=== PATIENT | female | born 1940 | race Caucasian/White ===

== ENCOUNTER → 2016-10-28 | Outpatient (CLI) | payer OTHER, MEDICARE ==
[~2016-10-28] MED LIST: ACTOS 30 MG TAB30 MG PO; ACTOS 45 MG45 M1 PO; BACTRIM DS TAB1 EACH PO; CALCIUM 600 WI1 EAC5 PO; CIPRO500 MG PO; EVISTA PO; FORTICAL1 SPRAY NASAL; GLUCOPHAGE1000 MG PO; GLUCOSAMINE &1 EACH PO; HYDROCODONE-AP1 EAC6 PO; IBUPROFEN 200200 M1 PO; LISINOPRIL2.5 MG PO; LOVASTAT40 PO; MIACALCIN; NORCO 5-325 TA1 EACH PO; PROAIR HFA8.5 GM INH; VITAMIN D2000 UNI1 PO; VITAMIN E400 UNIT PO; VITAMINC500 PO
== END ==
LOC: MRI 10-09 08:08
DX: M48.56XA Collapsed vertebra, not elsewhere classified, lumbar region, initial encounter for fracture (principal); M51.36 Other intervertebral disc degeneration, lumbar region

== ENCOUNTER → 2017-09-16 | Outpatient (CLI) | payer OTHER, MEDICARE | LOC: NUC 08:52 | DX: M81.0 Age-related osteoporosis without current pathological fracture (principal); E28.39 Other primary ovarian failure; Z78.0 Asymptomatic menopausal state ==

== ENCOUNTER → 2017-12-24 | Outpatient (CLI) | payer OTHER, MEDICARE | LOC: RAD 12-23 09:50 | DX: Z12.31 Encounter for screening mammogram for malignant neoplasm of breast (principal) ==

== ENCOUNTER → 2018-09-30 | Outpatient (CLI) | payer OTHER, MEDICARE | LOC: ULTRA 09:27 | DX: M79.89 Other specified soft tissue disorders (principal); M79.605 Pain in left leg; R60.0 Localized edema ==

== ENCOUNTER → 2018-12-24 | Outpatient (CLI) | payer OTHER, MEDICARE | LOC: RAD 01:19 | DX: Z12.31 Encounter for screening mammogram for malignant neoplasm of breast (principal) ==

== ENCOUNTER 2019-05-27 07:29 | Inpatient (IN) | payer OTHER, MEDICARE ==
[~2019-05-27] VITALS: Ht 152.4 cm; Wt 77.5 kg
[2019-05-27 07:30] VITALS: BP 123/63
[2019-05-27] MEDS ORDERED: GLIPIZIDE 10 MG10 MG PO (07:43)
[2019-05-27] MEDS ORDERED: LASIX 40 MG TAB40 M2 PO (07:45)
[2019-05-27] MEDS ORDERED: LEVO-T50 MCG PO (07:46)
[2019-05-27] MEDS ORDERED: OZEMPIC0.25 MG/0. SUBQ (07:47)
[2019-05-27] MEDS ORDERED: ASPIR 8181 MG PO (07:47)
[2019-05-27] MEDS ORDERED: VITAMIN D1000 UNI1 PO (07:49)
[2019-05-27 14:53] LABS: HEMATOCRIT 35.1 % (37.0-47.0); HEMOGLOBIN 11.7 gm/dL (12.0-15.0); MCH 29.1 pg (26.0-34.0); MCHC 33.5 g/dL (28.0-37.0); MCV 87.1 fL (80.0-100.0); RBC 4.03 mil/uL (4.20-5.00); RDW 13.4 % (10.5-14.5); WBC 14.4 thou/uL (4.0-11.0)
[2019-05-27 14:54] LABS: URINE BILIRUBIN NEGATIVE (Negative); URINE BLOOD 1+ (Negative); URINE CLARITY CLOUDY; URINE COLOR YELLOW; URINE GLUCOSE-RANDOM* 1+ (Negative); URINE KETONES 1+ (Negative); URINE PROTEIN (DIPSTICK) TRACE (Negative); URINE SPECIFIC GRAVITY 1.015 (1.005-1.035); URINE UROBILINOGEN 0.2 E.U./dl (0.2-1.0)
[2019-05-27 14:57] LABS: URINE LEUKOCYTES-REFLEX 2+ (Negative); URINE NITRITE-REFLEX POSITIVE (Negative)
[2019-05-27 15:02] LABS: SQUAMOUS 0-3 Few /LPF (0-3); URINE WBC-REFLEX >25 Many /HPF (0-5)
[2019-05-27 15:03] LABS: CASTS None Seen /LPF (None Seen); CRYSTALS None Seen /LPF (None Seen); URINE RBC 3-10 Few /HPF (0-2)
[2019-05-27 15:03] LABS: CALCIUM 10.1 mg/dL (8.5-10.1); POTASSIUM 4.2 mmol/L (3.5-5.1)
[2019-05-27 15:09] LABS: ALBUMIN 3.1 g/dL (3.4-5.0); MAGNESIUM 1.9 mg/dL (1.8-2.4); TOTAL BILIRUBIN 0.7 mg/dL (<0.1-1.0); TOTAL PROTEIN 6.6 g/dL (6.4-8.2)
[2019-05-27 15:35] LABS: TSH 0.953 uIU/mL (0.358-3.740)
[2019-05-27 18:46] VITALS: BP 118/55
[2019-05-27 19:27] VITALS: BP 101/53
[2019-05-27 19:49] VITALS: BP 115/46
--- NOTE | 2019-05-28 02:50 | NUR ---
ASSUMED CARE OF PT AT 1945HRS. PT IS AOX4 AND LETS NEEDS BE KNOWN. PT WAS ORIENTED TO THE ROOM AND THE UNIT. PT UNDERSTANDS TEACHING AND WAS ABLE TO SIGN HER OWN CONSENTS. PAIN WAS REPORTED AND WAS TEATED WITH PRN PAIN MEDS. PT USED BEDPAN THIS SHIFT. WOUNDS PRESENT ON PT AND WAS PHOTOGRAPHED. PT WAS ABLE TO SLEEP PART OF THE SHIFT. NO S/S OF ACUTE DISTRESS. WILL CONTINUE TO MONITOR.
[2019-05-28 03:46] VITALS: BP 94/38
[2019-05-28 04:26] LABS: CALCIUM 9.8 mg/dL (8.5-10.1); MAGNESIUM 1.7 mg/dL (1.8-2.4); POTASSIUM 4.3 mmol/L (3.5-5.1)
[2019-05-28 04:42] LABS: ABSOLUTE NEUTROPHILS 6.8 thou/uL (1.4-8.2); BASOPHILS 0.4 % (0.0-2.0); EOSINOPHILS 1.2 % (0.0-3.0); HEMOGLOBIN 11.7 gm/dL (12.0-15.0); LYMPHOCYTES 23.8 % (24.0-44.0); MCH 29.7 pg (26.0-34.0); MCHC 33.5 g/dL (28.0-37.0); MCV 88.7 fL (80.0-100.0); MONOCYTES 8.2 % (1.0-8.0); PLATELET COUNT 242 thou/uL (150-400); POLYS 66.4 % (36.0-66.0); RBC 3.94 mil/uL (4.20-5.00); RDW 13.8 % (10.5-14.5); WBC 10.2 thou/uL (4.0-11.0)
[2019-05-28 08:00] VITALS: BP 107/46
--- NOTE | 2019-05-28 10:34 | NUR ---
WOUND CONSULT; THERE IS A STABLE FACE LACERATION TO THE LEFT CHEEK RE; A FALL. INTACT SUTURES. THE COCCYX AREA HAS AN OLD STAGE 3 WITH NO ACUTE S/S OF INFECTION. RECOMMENDATIONS; APPLY XEROFORM TO WOUND BED, COVER WITH A BOARDERED FOAM, DAILY/PRN DISCUSSED WITH RN
[2019-05-28] MEDS ORDERED: TRAMADOL 50 MG50 MG PO (12:41)
[2019-05-28] MEDS ORDERED: COLACE100 MG PO (12:43)
[2019-05-28] MEDS ORDERED: TRIPLE ANTIB28.35 GM TOP (12:43)
[2019-05-28] MEDS ORDERED: TYLENOL325 MG PO (12:43)
[2019-05-28] MEDS ORDERED: ENOXAPARIN40 MG/0.1 SUBQ (12:43)
[2019-05-28] MEDS ORDERED: MIRALAX17 GM PO (12:43)
[2019-05-28] MEDS ORDERED: CEFUROXIME500 MG PO (12:44)
--- NOTE | 2019-05-28 18:55 | NUR ---
ASSUMED PATIENT CARE AT 0715. PATIENT SLEEPING AT THAT TIME. DID AWAKEN FOR BREAKFAST. REFUSED AM INSULIN. METFORMIN AND GLIPIZIDE GIVEN AND NOON BLOOD SUGAR 129. PATIENT IS A MAX ASSIST FOR TURNING, PERICARE. WOUND CARE NURSE CHANGBED COCCYX WOUND. TOLERATING DIET WELL. MAIN COMPLAINT PAIN TO COCCYX, LT HIP AND LT KNEE. MEDICATED WITH TRAMADOL AND TYLENOL WITH MODERATE RELIEF. TURNED Q2H. FALL PRECAUTIONS IN PLACE. DISCHARGED TO 5N AT 1526 IN STABLE CONDITION.
== END 2019-05-28 15:26 | DRG 605 ==
LOC: ER 07:29 → EROBS 13:06 → 4W 13:06
PROVIDERS: Emergency Medicine; Nurse Practitioner; ADMIT Internal Medicine
PROC: 0HQ1XZZ Repair Face Skin, External Approach (ICD-10-PCS; principal; 2019-05-27)
DX: S01.81XA Laceration without foreign body of other part of head, initial encounter (principal); N39.0 Urinary tract infection, site not specified; E11.9 Type 2 diabetes mellitus without complications; I10 Essential (primary) hypertension; E78.00 Pure hypercholesterolemia, unspecified; J45.909 Unspecified asthma, uncomplicated; E78.5 Hyperlipidemia, unspecified; E03.9 Hypothyroidism, unspecified; Z60.2 Problems related to living alone; E66.9 Obesity, unspecified; M81.0 Age-related osteoporosis without current pathological fracture; M19.90 Unspecified osteoarthritis, unspecified site; Z88.1 Allergy status to other antibiotic agents; W07.XXXA Fall from chair, initial encounter; Y93.89 Activity, other specified; Y92.89 Other specified places as the place of occurrence of the external cause; Y99.8 Other external cause status; Z79.82 Long term (current) use of aspirin; Z79.899 Other long term (current) drug therapy; Z68.33 Body mass index [BMI] 33.0-33.9, adult; Z23 Encounter for immunization
CPT/HCPCS: 10040; 56526; 56527; 56528

== ENCOUNTER 2019-05-28 13:04 | Inpatient (IN) | payer OTHER, MEDICARE ==
[~2019-05-28] VITALS: Ht 152.4 cm; Wt 78.2 kg
[~2019-05-28 13:04] MED LIST changes: +ASPIR 8181 MG PO; +CEFUROXIME500 MG PO; +COLACE100 MG PO; +ENOXAPARIN40 MG/0.1 SUBQ; +GLIPIZIDE 10 MG10 MG PO; +LASIX 40 MG TAB40 M2 PO; +LEVO-T50 MCG PO; +MIRALAX17 GM PO; +OZEMPIC0.25 MG/0. SUBQ; +TRAMADOL 50 MG50 MG PO; +TRIPLE ANTIB28.35 GM TOP; +TYLENOL325 MG PO; +VITAMIN D1000 UNI1 PO
[2019-05-28 16:20] VITALS: BP 133/58
--- NOTE | 2019-05-28 16:34 | NUR ---
PT ARRIVED TO THE UNIT IN PAIN, AND EXTREMELY ANXIOUS. PHYSICAL THERAPY ATTEMPTED TO TRANSFER HER FROM THE WC TO THE BED USING VARIOUS TECHNIQUES, AND THE PT WAS NOT ABLE TO TOLERATE ANY OF THEM. MANAV DEPENDENT LIFT USED FOR TRANSFER, AND PT WAS ABLE TO FOLLOW DIRECTIONS. PHYSICAL ASSESSMENT DONE, AND VS CHECKED, THEN PT IMMEDIATELY TAKEN TO XRAY DUE TO PAIN IN HER LLE. AWAITING PT'S RETURN TO COMPLETE THE ADMISSION ASSESSMENT.
--- NOTE | 2019-05-28 16:45 | NUR ---
PT RETURNED FROM XRAY AND WAS ASSISTED TO BED. PHYSICAL ASSESSMENT IS FOLLOWS: BRUISING AND LACERATION TO LEFT CHEEK AND BELOW LEFT EYE, MEDICAL ART THERAPIST AND SCABBED OVER. PT WEARING GLASSES AND STATES THAT HER VISION IS "FINE." PT STILL C/O PAIN, BUT MUCH MORE CALM, STATING THAT SHE IS EASING DOWN. LUNGS ARE CTA BILAT WITH NO COUGH. HEART IS RRR S1S2, RADIAL PULSES AND PEDAL PULSES STRONG/NORMAL, MARKED EDEMA WITH REDNESS AND HARD-PITTING TO LLE WITH LEATHERY SKIN, AND DOPPLER IS NEGATIVE TODAY FOR DVT. PT NOTED THAT THIS HAS BEEN AN ONGOING PROBLEM. ABDOMEN IS VERY FIRM AND DISTENDED, AND BOWEL SOUNDS ARE HYPOACTIVE, PT NOTED NO BM SINCE 05/25 AND SHE DOESN'T RECALL PASSING GAS TODAY, BUT DID "YESTERDAY." BLE WEAKNESS IS PROFOUND AND PT WAS NOT ABLE TO BEAR FULL WEIGHT FOR TRANSFER TO BED EARLIER. WOUND AT COCCYX AREA IS SLIGHTLY TUNNELED AND PHOTOS AND MEASUREMENTS WERE TAKEN. REPORT GIVEN TO TAYLOR ALONZO, AND PT RESTING IN BED.
--- NOTE | 2019-05-28 17:52 | NUR ---
REC REPORT FROM COUNTER TOP MAKER ON NEW ADMISSION, SHE PERFORMED WOUND CARE, REMOVING DRESSING, CLEANING, MEASURING, PHOTOGRAPHING, AND REDRESSING (XEROFORM AND DRESSING), PT IS A&OX4, IS NOT AMBULATORY, USES W/C AND HAD FALL. ALSO HAS UTI, LIVES AT [facility]. IS NOT IMPULSIVE, HAS HAD A FEW BOUTS OF CRYING, UPSET WITH HAVING BEEN BROUGHT TO FLOOR, THEN LEFT FOR XRAY. ASSURED HER WE'D CARE FOR HER AND SHE'S IN HOSPITAL THEREFORE DIAGNOSTICS HAVE TO BE DONE AND WE'D ADM PAIN MEDICATION ONCE IT'S AVAILABLE. HAS MULTIPLE SKIN ISSUES, BRUISES, SCABS, CHIN STITCHES FROM FALL THAT OCCURRED YESTERDAY. HAS CALL LIGHT AND BEDSIDE TABLE CLOSE BY, ENCOURAGED PT TO USE CALL LIGHT FOR ANY NEEDS, TURN Q2H, IS VERY TIRED. HELPED HER CALL DIETARY TO GET HER SUPPLEMENT SHE DIDN'T GET IT AT LUNCH.
[2019-05-28 19:40] VITALS: BP 108/46
--- NOTE | 2019-05-29 00:51 | NUR ---
ASSESSMENT: PT REMAIN ALERT AND ORIENT TIMES THREE. C/O LEFT HIP AND KNEE PAIN THAT IS ACUTE IN NATURE. PRN PAIN MEDICAITONS GIVEN WITH PARTIAL RELIEF. PT REQUEST TO HAVE BOTH TYLENOL AND TRAMADOL GIVEN AT THE SAME TIME. IT WAS EXPLAINED TO PT THAT THIS WOULD NOT BE POSSIBLE AND THAT IT WAS NOT QUITE TIME FOR TRAMADOL TO BE GIVEN BUT THAT SHE COULD HAVE TYLENOL FOR NOW. TURNED EVERY TWO HOURS. BRUISING AND SCRATCHES NOTED ON FACE AND LEFT EXTREMITY. LOW AIR MATTRESS INITIATED FOR PT. PT INQUIRED ABOUT HER WEEKLY INJECTION OF OZEMPIC. IT WAS EXPLAINED THAT THIS MEDICATION WAS BEING HELD WHILE IN PATIENT STATUS. PT FEARED THAT HER BLOOD SUGARS WOULD GET OUT OF HAND AND WOULD BECOME HIGH IN RESULTS. PT IS CURRENTLY TAKING GLIPIZIDE QID. THIIS EVENINGS BLOOD SUGAR WAS 205. SACRAL WOUND COVERED WITH DRESSING AND PIC TAKEN. WOUND CARE NOTIFIED. 3 LITERS APPLIED PER RT R/T PT DESATS IN MID 80'S WHILE ASLEEPING. SLOW PROGRESS TOWARDS DC GOALS, WILL CONTINUE TO MONITOR.
[2019-05-29 05:16] LABS: HEMOGLOBIN 11.7 gm/dL (12.0-15.0); MCH 29.3 pg (26.0-34.0); MCHC 33.3 g/dL (28.0-37.0); MCV 87.9 fL (80.0-100.0); RBC 3.98 mil/uL (4.20-5.00); RDW 13.7 % (10.5-14.5); WBC 11.7 thou/uL (4.0-11.0)
[2019-05-29 05:19] LABS: CALCIUM 9.9 mg/dL (8.5-10.1); CREATININE 0.8 mg/dL (0.6-1.0); POTASSIUM 4.8 mmol/L (3.5-5.1)
[2019-05-29 07:20] VITALS: BP 99/53
--- NOTE | 2019-05-29 09:49 | NUR ---
ASSUMED CARE AT 0700. PATIENT IS ALERT AND ORIENTED X4. PATIENT TIRADO'S, THREADING MACHINE TENDER ARE EQUAL. LUNGS ARE CLEAR AND DEMINISHED. ABD IS SOFT WITH BSX4. ABD IS DISTENDED, BUT PATIENT STATES THAT HER ABD HAS BEEN THIS WAY. PATIENT HAD BM YESTERDAY REPORTED BY THE NIGHT NURSE. PATIENT HAS WOUND ON HER COCCYX AND TRIPLE ABT APPLIED WITH OPTIFOAM DRESSING. PATIENT HAS BILATERAL L.E. CELLULITIS. PATIENT IS ON PO ABT FOR UTI AND CELLULITIS. PATIENT HAS MULTIPLE BRUISES ON HER RIGHT ARM. ABASIONS ON HER FACE WITH SUTURES. PATIENT HAS LEFT FORARM S.L. PATIENT C/O LEFT HIP AND LEG PAIN. PATIENT XRAYS ARE NEGATIVE FOR FX. FALL AND SAFETY PROTOCOLS IN PLACE. DENIES PAIN AT THIS TIME. CONTINUES TO PROGRESS TOWARDS D/C GOALS. WILL CONTINUE TO MONITER.
[2019-05-29 20:00] VITALS: BP 119/45
--- NOTE | 2019-05-30 02:33 | NUR ---
ASSESSMENT: PT IS MORE RECEPTIVE OF HER POC THAN SHE DID YESTERDAY. TURNED EVERY TWO HOURS. NEOMYCIN APPLIED TO SCRAPES ON FACE AND SACRAL AREA. VSS, AFEBRILE. ENCOURAGED TO USE IS WHILE AWAKE. GAVE INSTRUCTIONS ON HOW TO USE THE IS, INCONT TO URINE TIMES 2. SLEPT MOST OF THE NIGHT, C/O GENERALIZED PAIN. PRN PAIN MEDS GIVEN WITH GOOD RESULTS. SLOW PROGRESS TOWARDS DC GOALS, WILL CONTINUE TO MONITOR.
[2019-05-30 08:00] VITALS: BP 128/67
--- NOTE | 2019-05-30 09:14 | NUR ---
ASSUMED CARE AT 0700. PATIENT IS ALERT AND ORIENTED X4. PATIENT TIRADO'S. PATIENT HAS CELLULITIS IN HER LOWER EXTREMITIES AND CONTINUES ON ABT PO. NO ADVERSE AFFECTS NOTED. LUNGS ARE CLEAR AND DEMINISHED. ABD IS SOFT, ROUND AND BSX4. PATIENT CONTINUES TO VOID PER BEDPAN AND HAS WOUND TO HER COCCYX. DRESSING WAS CHANGED. PATIENT CONTINUES TO WEAR HER 02 AT 2L OFF AND ON. PATIENT HAS IV IN HER LEFT FORARM. IV SITE WITHOUT REDNESS OR SWELLING. FALL AND SAFETY PROTOCOLS IN PLACE. C/O PAIN IN HER LEFT LEG AND HIP. X RAYS WERE NEG. MEDICATED WITH PRN PAIN MEDS. CONTINUES TO PROGRESS TOWARDS D/C GOALS. WILL CONTINUE TO MONITER.
[2019-05-30 19:58] VITALS: BP 136/58
--- NOTE | 2019-05-31 02:18 | NUR ---
ASSUMED CARES AT 1900. PT ALERT AND ORIENTED*4, RESTLESS AND ANXIOUS. C/O RIGHT QUADRANT ABDOMINAL PAIN 03/15. ABDOMEN IS FIRM, PROTRUDING AND BLOTTED, HYPOACTIVE BS. LAST REPORTED BM >5DAYS AGO PER PATIENT. MG CITRATE & DUCOLAX SUPP ADMINISTERED, PT HAD *2 XSM RUNNY STOOLS. KUB ORDERED, SHOWED LG STOOL IMPACTION AND NO OBSTRUCTION. CONTINUE TO HAVE A SACRAL WOUND, REPOSITIONED Q2H AND PRN. VOIDS AND STOOLS PER BEDPAN, PERICARE COMPLETED WITH QVOID/BM. Q1H VISUAL CHECKS. CALL LIGHT WITHIN REACH. FALL PRECAUTIONS IN PLACE
[2019-05-31 07:35] VITALS: BP 123/61
--- NOTE | 2019-05-31 12:23 | NUR ---
chart reviewed. pt up in beds, getting ready to eat lunch. intro to dcp, and team meeting. pt preferrs going by codi, " live in senior apartment alone, called [facility] [place] have transport chair, fww and cane. no home oxygen. manage own medication. call light in bedroom and bathroom. there needs to be one in living room. low income housing and why if have call light already show i have to pay monthly for life alert cause not one in living room. 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 had hh in past and been to [facility] rehab in past. daughter or take cab for transportation."/codi. will cont following as needed for dc needs.
--- NOTE | 2019-05-31 14:49 | NUR ---
Nutrition: pt admitted with fall, possible CHI. Has old stage 3 sacral wound per wound care and cellulitis LE. PO intake >50% of meals. No recent weight change. Ensure max ordered daily for additional protein. Will also trial alcon BID. Pt provided food preferences. BG 191-204. Hx DM, currently has heart healthy diet order. RD will add carb controlled-pt agrees. Would suggest D/C of heart healthy diet restriction per pt request. Low risk.
[2019-05-31 19:44] VITALS: BP 110/56
--- NOTE | 2019-05-31 20:18 | NUR ---
PATIENT ALERT AND ORIENTED AND SEVERAL LARGE BM TODAY AFTER PATIENT UP TO CHAIR AND MOBILE. PATIENT PAIN RELEIF BY REPOSITIONING AND STATES SITTING IN W/C IS MUCH MORE COMFORTABLE BECAUSE OF THE CUSHION. PATIENT LIKES THE SANTHOSH STEADY AND IF CONFIDENT WITH USING IT BUT REQUIRES QUES FOR POSTIIONING.
--- NOTE | 2019-06-01 03:08 | NUR ---
ASSUMED CARES AT 1900. PT AWAKE, ALERT AND ORIENTED*4. ANXIOUS AND TEARY REGARDING HER DISTENDED ABDOMEN AND BOWEL PROGRAM. PT REASSURED AND PT TEACHING COMPLETED AND PT VERBALISED UNDERSTANDING AND WAS CALM. ENEMA ADMINISTERED AND PT HAD A MODERATE BM. ABDOMEN REMAINS DISTENDED AND FIRM WITH HYPERACTIVE BS. PT C/O ABDOMINAL PAIN RIGHT UPPER AND LOWER QUADRANTS AND BACK PAIN, TYLENOL ADMINISTERED NEEDED AND PT REPOSITIONED Q2H. SACRAL WOUND REMAINS DRY AND INTACT, DRESSING CHANGED. UP WITH SIT TO STAND LIFT AND TOLERATED WELL. Q1H VISUAL CHECKS. CALL LIGHT WITHIN REACH. FALL PRECAUTIONS IN PLACE
[2019-06-01 10:21] VITALS: BP 121/62
--- NOTE | 2019-06-01 12:21 | NUR ---
team meeting, recommendation: re team , anticipation hh vs snf on . needs 24/ supervision and with assistance with bills and pills.
--- NOTE | 2019-06-01 22:01 | NUR ---
ASSUMED CARE OF PT AT 0715. PT IS A&OX4 AND VITAL SIGNS ARE STABLE. PT REPORTED PAIN IN LEFT HIP AND ABDOMEN WHICH WAS MANAGED WITH PO MEDICAITONS. PT ABDOMEN IS DISTENDED AND FIRM. PT REPORTS HAVING SUCCESSFUL BOWEL MOVEMENTS THIS SHIFT AND DURING THE NIGHT. REPORTS SOME NAUSEA W/O EMESIS. ACCU CHECKS ACHS AND MANAGED WITH INSULIN. PT INCONTINENT OF BOWEL AND BLADDER. SACRAL WOUND DRESSING NOT CHANGED BY THIS SHIFT REPORTED TO FOLLOWING NURSE, DUE TO PT BEING IN CHAIR AND REFUSING TO TRANSFER TO BED. PT PARTICIPATED IN SCHEDULED THERAPIES. FALL PRECAUTIONS IN PLACE AND NURSING WILL CONTINUE TO MOINTIOR.
[2019-06-02 04:07] LABS: GLYCOHEMOGLOBIN (HGB A1C) 6.6 % (4.8-5.6)
--- NOTE | 2019-06-02 05:36 | NUR ---
ASSESSMENT: PT REMIN ALERT AND ORIENT TIMES THREE. SLEPT MOST OF THE NIGHT WITH VSS AND AFEBRILE. DRESSING APPLIED TO BUTTOCKS. PRN PAIN MEDS GIVEN WITH GOOD RESULTS PER PT. AT TIMES PT IS WEEPING AND STATING THAT SHE WANTS TO GET TO THE POINT OF BEING ABLE TO CARE FOR HERSELF BECAUSE SHE DOES NOT WANT TO GO TO DEPENDENT FACILITY AT HER NH. SLOW PROGRESS TOWARDS DC GOALS. WILL CONTINUE TO MONITOR.
[2019-06-02 08:00] VITALS: BP 113/65
--- NOTE | 2019-06-02 10:52 | HC ---
[facility] [place] [address] CONSULTATION Name: WOLFGANG BLAIR Room #: 516-1 ADM IN M.R.#: [id number] Admission: 05/28/19 ������������������ Attend Phys: Rohan Amador MD Discharge: ������������������ Date of : 42 Report #: [id number] THIS REPORT FOR: //name// CC: Rohan Patel DATE OF SERVICE: 05/31/2019 WOUND CARE CONSULTATION PERSONAL PHYSICIAN: Jacky Patel M.D. . CHIEF COMPLAINT: Coccygeal ulcer. HISTORY OF PRESENT ILLNESS: This is a 79-year-old white female who was admitted to the acute rehab unit at [facility] and upon admission was found to have an ulceration in her coccygeal region. The patient recently had sustained a fall and subsequent complex facial laceration without fracture. The patient has a history of chronic balance problems and frequent falling. The patient has now been admitted to the rehab unit for rehabilitation and strengthening. We have been asked to follow the coccygeal ulcer while she is here. The patient denies any other associated wounds at this time. PAST MEDICAL HISTORY: Significant for type 2 diabetes, hypertension, asthma, osteoporosis, chronic balance and immobility problems. Hypercholesterolemia. CURRENT MEDICATIONS: Multiple, I reviewed the patient's medication list. DRUG ALLERGIES: AMOXICILLIN. SOCIAL HISTORY: The patient lives independently. Does not smoke or drink alcohol. FAMILY HISTORY: Not pertinent to current medical condition. REVIEW OF SYSTEMS: CONSTITUTIONAL: The patient denies fevers or chills. NEUROLOGIC: The patient has chronic generalized weakness, but no isolated weakness in arms or legs. EYES: No complaints. ENT: No complaints. CARDIAC: The patient has mild chronic lower extremity edema, but no chest pain or palpitation. RESPIRATORY: The patient denies shortness of breath, cough or wheezes. GASTROINTESTINAL: The patient denies nausea, vomiting, abdominal pain. GENITOURINARY: The patient denies urgency or frequency. [facility] [address] [place] [address] CONSULTATION Name: WOLFGANG BLAIR Room #: 516-1 ADM IN [facility]#: [id number] Admission: 05/28/19 ������������������ Attend Phys: Rohan Amador MD Discharge: ������������������ Date of : 42 Report #: [id number] MUSCULOSKELETAL: No complaints. SKIN: There is a chronic ulceration in the coccygeal region. PHYSICAL EXAMINATION: VITAL SIGNS: Temperature 36.6, pulse 88, respirations 20, BP 121/62. GENERAL: This is an alert and oriented x 3, pleasant white female who is in absolutely no distress. HEENT: Normocephalic, atraumatic. Mucous membranes are moist. Pupils are round. Sclerae white. NECK: Supple, nontender. LUNGS: Clear. HEART: Regular. ABDOMEN: Obese, soft, nontender. Evaluation of coccygeal region reveals a stage 3 decubitus ulcer, which is clean and granulating, minimal serous drainage noted without odor. Periwound is intact. There is no undermining or tunneling. No involvement of any deeper structures. EXTREMITIES: The patient has 1+ edema bilateral lower extremities. Bilateral heels are intact. NEUROLOGIC: Cranial nerves 2-12 grossly intact. Motor and sensory grossly intact. LABORATORY DATA: White count 11.7, hemoglobin 11.7, BUN 13, creatinine 0.8, glucose 241. Albumin 3.1. IMPRESSION: 1. Chronic coccygeal decubitus ulcer stage 3 without signs of infection. 2. Generalized debility. 3. Protein-calorie malnutrition, mild with albumin of 3.1. 4. Diabetes mellitus type 2. PLAN: We will start the patient on silver alginate and gauze to the area to aid in the healing. This will be changed once daily. We will make sure we maximize the patient's oral protein supplementation for healing. We will put the patient on low air loss mattress, have her turned every 2 hours. The patient will continue physical and occupational therapy for strengthening. We will maximize the patient's oral protein supplementation for healing. We will continue all other current medications and we will continue to follow the patient. ��������������������������������������������� <ELECTRONICALLY SIGNED> ���������������������������������������� By: Saulo Rodriguez MD ��������������������������������������������� 06/02/19 [id number] Saulo Rodriguez MD /nt
[2019-06-02 19:48] VITALS: BP 128/74
--- NOTE | 2019-06-02 20:18 | NUR ---
ASSUMED CARE OF PT AT 0715. PT IS A&OX4 AND VITAL SIGNS ARE STABLE. PT REPORTS CONTINUED ABDOMINAL DISCOMFORT AND DIFFICULTY WITH PASSING STOOL. STOOL SOFTNERS AND LAXATIVES GIVEN PER ORDER. ABDOMEN IS ROUND AND FIRM, BOWEL SOUNDS ACTIVE IN ALL QUADRANTS. PT REFUSED TO LIE DOWN FOR WOUND CARE. NIGHT NURSE MADE AWARE. ACCU CHECKS ACHS AND MANAGED WITH PO MEDICAITONS AND INSULIN. FALL PREACAUTIONS IN PLACE AND NURSING WILL CONTINUE TO MONITOR.
--- NOTE | 2019-06-03 04:06 | NUR ---
ASSUMED CARE AT APPROX 1900 EVENING 06/02. PT ALERT AND ORIENTED X4, APPROPRIATE AND COOPERATIVE, TALKATIVE, SOMEWHAT ANXIOUS. PT INCONTINENT WITH LOOSE BM AT BEGINNING OF SHIFT HAVING ACCIDENT IN CHAIR AND NEEDING MAX ASSISTANCE UP WITH SANTHOSH STEADY WALKER TO BATHROOM. ASSISTED WITH CLEANING UP AND CHANGING IN BATHROOM. PT ASSISTED INTO BED AND TURNED AND DRESSING APPLIED TO COCCYX AREA. PT ASSISTED WITH TURNING AND REPOSITIONING SEVERAL TIMES IN NIGHT. PT TOOK HS MEDS WITH WATER TOLERATING WELL. PT APPEARS TO BE SLEEPING AT PRESENT. BED ALARM ON AND CALL LIGHT IN REACH. WILL CONTINUE TO MONITOR.
[2019-06-03 07:59] VITALS: BP 124/48
[2019-06-03 19:42] VITALS: BP 124/66
--- NOTE | 2019-06-03 20:15 | NUR ---
ASSUMED CARE OF PT AT 0715. PT IS A&OX4 AND VITAL SIGNS ARE STABLE. PT WOUND TO SACRUM DRESSED AND PHOTOS TAKEN THIS AM. SEVERAL BOWEL MOVEMENTS REPORTED DURING THE NIGHT, PT CONTINUES TO HAVE ABDOMINAL DISTENSION AND DISCOMFORT. PO MEDICAITONS FOR BOWEL GIVEN, NO FURTHER RESULTS AT THIS TIME. ACCU CHECKS ACHS AND MANAGED WITH PO MEDICAITONS AND INSULIN. PT REPORTS CONCERN THAT SHE WILL BE REQUIRED TO TAKE INSULIN WHEN SHE RETURNS HOME DUE TO FEAR OF GIVING INJECTIONS. PT CONCERNS BROUGHT TO THE ATTENTION OF INGREDIENT SCALER HELPER. NURSING RECOMMENDS EXTENSIVE EDUCATION FOR PT IF INSULIN WILL BE NEEDED AFTER DISCHARGE, MAY REQUIRE ASSISTANCE WITH ALL INSULIN RELATED TASKS AT DISCHARGE. PAIN MANAGED WITH PO MEDICAITONS AND PT PARTICIPATED IN SCHEDULED THERAPIES. FALL PRECAUTIONS IN PLACE AND NURSING WILL CONTINUE TO MONITOR.
--- NOTE | 2019-06-04 04:12 | NUR ---
ASSESSMENT: PT QUITE NEEDY THIS EVENING. WAS SITTING UP IN THE CHAIR AT THE CHANGE OF SHIFT. PT DOES VERY WELL WITH TRANSFERRING WITH THE ROLLER CHAIR MACHINE TO THE BR AND BACK TO BED. SACRAL WOUND APPEARS TO BE SLOWLY HEALING. DC PLANS FOR THE 06/12/19. PT APPEARS HAPPIER THAN WHEN SHE FIRST ARRIVED AND IS DOING MORE THINGS FOR HERSELF AND HER CARE. TOLERATING PO INTAKE AND DENIES SOB, N/V. VSS, AFEBRILE. SLOW PROGRESS TOWARDS DC GOALS, WILL CONTINUE TO MONITOR.
[2019-06-04 06:22] LABS: ABSOLUTE NEUTROPHILS 5.4 thou/uL (1.4-8.2); BASOPHILS 0.4 % (0.0-2.0); EOSINOPHILS 3.9 % (0.0-3.0); HEMATOCRIT 32.8 % (37.0-47.0); HEMOGLOBIN 11.1 gm/dL (12.0-15.0); LYMPHOCYTES 29.3 % (24.0-44.0); MCH 29.2 pg (26.0-34.0); MCHC 33.7 g/dL (28.0-37.0); MCV 86.6 fL (80.0-100.0); MONOCYTES 11.8 % (1.0-8.0); PLATELET COUNT 354 thou/uL (150-400); POLYS 54.6 % (36.0-66.0); RBC 3.78 mil/uL (4.20-5.00); RDW 13.8 % (10.5-14.5); WBC 9.9 thou/uL (4.0-11.0)
[2019-06-04 07:30] VITALS: BP 115/56
[2019-06-04 08:54] LABS: CALCIUM 10.8 mg/dL (8.5-10.1); CREATININE 0.7 mg/dL (0.6-1.0); MAGNESIUM 2.1 mg/dL (1.8-2.4); POTASSIUM 4.4 mmol/L (3.5-5.1)
--- NOTE | 2019-06-04 13:27 | NUR ---
Nutrition: pt seen for early followup. Old stage 3 sacral wound, cellulitis LE. Likes the kike and the ensure max supplement but did not receive Kike at lunch. RD went and obtained for her. Intake 50-100% of meals. BG 130-188, Possible need for insulin at D/C noted. A1C 6.6. On metformin. Continue to suggest D/C of heart healthy diet restriction. Continue low risk.
--- NOTE | 2019-06-04 15:20 | NUR ---
cm visited with daughter jamaica gilliland this week team meeting and dcp. need for extra assistance with bills and pills, supervision. 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 have kids with actives as well. i would only be able to visit with her 1 x week. i know mom not going to want more therapy but she going to. thank you for call i will see mom this evening and call with 1 2 3 choices for skilled therapy"/everett lanza [phone].
--- NOTE | 2019-06-04 18:52 | NUR ---
PT ALERT AND ORIENTED TIMES FOUR. VSS, PT DENEIS PAIN/SOA. DRESSING TO COCCYX CHANGED THIS SHIFT. PT WORKED WELL WITH PT/OT. PT TOLERATES MEDS AND MEALS. PT PROGRESSING TOWRADS POC GOALS.
[2019-06-04 19:52] VITALS: BP 116/62
--- NOTE | 2019-06-05 05:11 | NUR ---
assumed care at approx 1900 evening 06/04. pt sitting up in w/c at change of shift. pt alert and oriented x4, appropriate and cooperative. pt somewhat frustrated and anxious and given much emotional support. pt assisted into bed at hs and took hs meds without difficulty. pt sleeping off and on and given Tylenol for c/o back pain. pt appears to be sleeping soundly at present. bed alarm on and call light in. will continue to monitor.
[2019-06-05 08:18] VITALS: BP 116/63
--- NOTE | 2019-06-05 18:13 | NUR ---
ASSUMED CARE OF PT AT 0715. PT IS A&OX4 AND VITAL SIGNS ARE STABLE. PT DENIES PAIN AND PARTICIPATED IN SCHEDULED THERAPIES. ACCU CHECKS BID AND MANAGED WITH INSULIN AND ORAL MEDICATIONS. DRESSING TO SACRUM CHANGED THIS SHIFT AND IS C/D/I, WOUND IS PINK AND MOIST. PT UP TO BATHROOM WITH 1 PERSON MIN ASSIST IN W/C USES GRAB BARS AND WALKER TO TRANSFER TO TOILET. PT CUED TO REPOSITION EVERY 2 HOURS. PT ACTIVELY PARTICIPATING IN CARES. FALL PRECAUTIONS IN PLACE AND NURSING WILL CONTINUE TO MONITOR.
[2019-06-05 19:30] VITALS: BP 106/53
--- NOTE | 2019-06-06 02:36 | NUR ---
PT ALERT AND ORIENTED X 4. TRANSFERS TO TOILET FROM W/C WITH ASSIST X 1. DRESSING TO SACRUM C/D/I. TYLENOL GIVEN AT HS PER PT REQUEST PREVENTATIVE FOR PAIN. DENIES PAIN OR DISCOMFORT. BED ALARM ON FOR SAFETY. PT APPEARS TO BE SLEEPING ON HOURLY ROUNDS.
[2019-06-06 08:06] VITALS: BP 119/53
--- NOTE | 2019-06-06 14:44 | NUR ---
ASSUMED CARE OF PT AT 0715. PT IS A&OX4 AND VITAL SIGNS ARE STABLE. ACCU CHECKS ACHS AND MANAGED WITH PO MEDICATIONS AND INSULIN. PT PERFORMED ADLS WITH SUPERVISION OR SET UP ASSISTANCE ONLY. TRANSFERS REQUIRE MOD ASSIST. DRESSING TO SACRUM CHANGED THIS AM, SITE IS MOIST WITH VISIBLE TUNNELING INTO THE WOUND BED, COVERED WITH SILVER FOAM DRESSING. PT ENCOURAGED TO REPOSITION EVERY [address] AND NURSIING WILL CONTINUE TO MONITOR.
[2019-06-06 19:57] VITALS: BP 110/51
--- NOTE | 2019-06-07 00:58 | NUR ---
PT ALERT AND ORIENTED X 4. TRANSFERS FROM W/C TO TOILET WITH ASSIST X 1. DRESSING C/D/I TO SACRUM. TYLENOL GIVEN AT HS PER PT REQUEST PREVENTATIVE FOR PAIN. DENIES PAIN OR DISCOMFORT. REFUSED MIRALAX AT HS. BED ALARM ON FOR SAFETY. PT APPEARS TO BE SLEEPING ON HOURLY ROUNDS.
[2019-06-07 07:30] VITALS: BP 119/57
--- NOTE | 2019-06-07 10:38 | NUR ---
ASSUMED CARES AT 0700. PT AWAKE, ALERT AND ORIENTED*4. VITALS REMAIN STABLE. DENIES PAIN. ABDOMEN REMAINS SOFT AND DISTENDED, PT REPORTS MULTIPLE STOOLS OVERNIGHT. SACRAL WOUND CLEANED AND DRESSING CHANGED. CONTINUES TO HAVE BLE EDEMA, EXTREMITIES ELEVATED AND TEDHOSE IN PLACE. PT UP WITH 1 MIN ASSIST, PIVOT TRANSFERS, GB AND WALKER AND TOLERATED WELL. Q1H VISUAL CHECKS. CALL LIGHT WITHIN REACH. FALL PRECAUTIONS IN PLACE
[2019-06-07 19:13] VITALS: BP 126/56
--- NOTE | 2019-06-08 02:10 | NUR ---
assumed care at approx 1900 evening 06/07. pt sitting up in w/c at change of shift wheeling herself around unit. pt alert and oriented x4, appropriate and cooperative. pt assisted with gown change and into bed at hs. pt given hs meds tolerating well. pt stated she had 3-4 bms in day but not diarrhea. pt also incontinent of urine tonight in bed and assisted with changing. pt refusing to lie on her side stating she cannot sleep on her side. advised pt it would be beneficial for her to help with healing of sacral wound. bed alarm on and call light in reach. will continue to monitor.
[2019-06-08 07:15] VITALS: BP 124/65
--- NOTE | 2019-06-08 13:29 | NUR ---
team meeting, recommendation: re team, 6th hh ( pt, ot, st, nursing and hh), daughter to assistance with 1 x week. education on checking bs at home.
[2019-06-08 19:15] VITALS: BP 103/45
--- NOTE | 2019-06-09 02:34 | NUR ---
assumed care at approx 1900 evening 06/08. pt sitting up in w/c wheeling herself around unit without difficulty. pt alert and oriented x4, appropriate and cooperative. pt assisted into bed at hs and pt took hs meds with water tolerating well. pt appears to be sleeping soundly with hourly rounding checks. bed alarm on and call light in reach. will continue to monitor.
[2019-06-09 07:50] VITALS: BP 112/64
--- NOTE | 2019-06-09 10:45 | NUR ---
ASSUMED CARE AT 0700. PATIENT IS ALERT AND ORIENTED X4. PATIENT TIRADO'S, HEALTH AND SAFETY COORDINATOR ARE EQUAL. LUNGS ARE CLEAR. ABD IS SOFT WITH BSX4. UP TO W/C , STAND, PIVOT , SIT. UP TO THE BATHROOM TO VOID EVER COLORED URINE. OPTIFOAM TO COCCYX AREA. FALL AND SAFETY PROTOCOLS IN PLACE. DENIES ANY PAIN AT THIS TIME. UP TO THE W/C WITH O.T. FALL AND SAFETY PROTOCOLS IN PLACE. DENIES ANY PAIN AT THIS TIME. CONTINUES TO PROGESS TOWARDS D/C GOALS. WILL CONTINUE TO MONITER.
[2019-06-09 19:43] VITALS: BP 111/65
--- NOTE | 2019-06-10 04:01 | NUR ---
ASSESSMENT: PT REMAIN ALERT AND ORIENT TIMES FOUR. PT WAS SITTING IN THE WC AT SHIFT CHANGE. OVER TIME AND WITH THERAPHY PT HAS PROGRESSED WELL. PT ABLE TO STAND, PIVOT, TURN AND SIT A LOT BETTER THAN WHEN SHE WAS ADMITTED. SEEMS HAPPIER AND TRY TO ELIMINATE MEDICATIONS WHICH CAUSES CONSTIPATION FROM HER REGIMEN. COCCYX WOUND HEALING SLOWLY. OPITFOAM INTACT. VSS, AFEBRILE. SLOW BUT STEADY PROGRESS TOWARDS DC GOALS, WILL CONTINUE TO MONITOR.
[2019-06-10 07:15] VITALS: BP 113/55
--- NOTE | 2019-06-10 09:37 | H ---
[facility] [place] [address] HISTORY AND PHYSICAL Name: WOLFGANG BLAIR Room #: 516-1 ADM IN M.R.#: [id number] Admission: 05/28/19 ������������������ Attend Phys: Rohan Amador MD Discharge: ������������������ Date of : 42 Report #: [id number] THIS REPORT FOR: //name// CC: Rohan Patel DATE OF SERVICE: 05/29/2019 HISTORY AND PHYSICAL/POST-ADMISSION PHYSICIAN EVALUATION HISTORY OF PRESENT ILLNESS: The patient is a 79-year-old female who was originally admitted on 05/27/2019 after a fall from her wheelchair level. The patient has had chronic balance problems and thus has utilized a wheelchair for stability. She fell from her wheelchair, hit her face and sustained a deep complex laceration requiring plastic surgery repair without any facial fractures. She did have a headache, although denied loss of consciousness. She thought that the fall may have been secondary to low blood sugar and anxiety. She also had knee pain and right great toe pain. She did have an x-ray, which did reveal a right large toe fracture. She was noted to have a fall with possible closed head injury gait instability/mobility and stability premorbidly wheelchair bound with balance issues and falling as well as being diagnosed with the urinary tract infection, diabetes mellitus type 2. The patient has now been admitted for acute in-hospital inpatient rehabilitation. She was seen by Orthopedics regarding the large toe fracture. As she is wheelchair bound, Orthopedics did not indicate any specific shoe wear was indicated. She can follow up in a couple of weeks with x-rays. The patient has significant functional mobility and ADL deficits and has now been admitted for acute in-hospital inpatient rehabilitation. We will also be doing some cognitive assessments with the possible closed head injury. Neuropsychology will also assist in this regard. PAST MEDICAL HISTORY: Includes diabetes mellitus type 2, hypertension, high cholesterol, asthma, osteoporosis, balance problems, right femur and hip surgery in 2009, right knee cap surgery x 2. ALLERGIES: AMOXICILLIN. SOCIAL HISTORY: Lives in senior low income housing, alone. No steps because of elevator, however, in case of fire, she would not be able to get out as her room is on the seventh floor and she is wheelchair dependent. She was independent with ADLs and IADLs, able to transfer herself from the bed to wheelchair using stand pivot transfer. She has an adjustable bed. She has a power wheelchair, but is currently broken. She is able to propel and steer herself independently. She has food and groceries delivered. She has a daughter and a granddaughter involved for now. [address] [address] HISTORY AND PHYSICAL Name: WOLFGANG BLAIR Room #: 516-1 [facility] IN M.R.#: [id number] Admission: 05/28/19 ������������������ Attend Phys: Rohan Amador MD Discharge: ������������������ Date of : 41 Report #: [id number] MEDICATIONS: Please see the full medication listing. HABITS: No history of tobacco or alcohol abuse. REVIEW OF SYSTEMS: Did not offer any current complaints of chest pain, shortness of breath or abdominal discomfort. PHYSICAL EXAMINATION: GENERAL: The patient was seen late yesterday after admission. A 79-year-old white female, in no obvious distress. VITAL SIGNS: Last recorded temperature 36.5, pulse 78, respirations 22, blood pressure is 99/53. She was pleasant, alert. HEENT: Appeared to be benign. NEUROLOGIC: Cranial nerves grossly intact. Facies are symmetric. She does follow basic 1 step commands. CHEST: Sounded clear to auscultation. CARDIOVASCULAR: Regular rate and rhythm. ABDOMEN: Bowel sounds positive, nontender. GENITOURINARY AND RECTAL: Deferred. EXTREMITIES: She does have a coccygeal pressure ulcer. I did not examine it on admission, but it is documented and is a premorbid condition that she was dealing with at home. Wound care is involved and she will have to be on a low air loss mattress. She has functional range of motion of the upper extremities with strength grade 4-/5. Lower extremities some right great toe discomfort, relatively mild. No foot drop. Strength is probably a grade 3+/5. She needs assistance with basic functional mobility skills. She has been dependent for bed to wheelchair transfers. Bed mobility has been max assist of 2. There has been some latency to her responses and she is somewhat tangential. She does have the facial laceration, which has been repaired as per Plastic Surgery. ASSESSMENT: 1. Fall with possible closed head injury. 2. Face laceration, status post repair. 3. Right large toe fracture. 4. Urinary tract infection. 5. Left leg pain and x-rays were negative, but has significant osteopenia. 6. Generalized weakness and debilitation. 7. Type 2 diabetes mellitus. 8. Hypertension. 9. Exogenous obesity. PLAN: The patient is admitted for acute in-hospital inpatient rehabilitation. From a postadmission physician evaluation perspective, there are no relevant changes since the preadmission screening. Please see the review of prior and current medical and functional conditions and comorbidities. Please see the patient's previous and current functional status. As far as risk of [facility] [address] [place] [address] HISTORY AND PHYSICAL Name: WOLFGANG BLAIR Room #: 516-1 ADM IN ..#: [id number] Admission: 05/28/19 ������������������ Attend Phys: Rohan Amador MD Discharge: ������������������ Date of : 41 Report #: [id number] complications, the patient has multiple medical comorbidities as noted above. The initial plan of care involves the interdisciplinary acute inpatient rehabilitation program with a goal of maximizing her functional independence, so she can hopefully return back to the home setting. Measurable functional goals would be for her to again achieve independence at the wheelchair level as well as to have her cognition further assessed. Prognosis is reasonably good with estimated length of stay probably at least 2-3 weeks pending progress. Potential barriers would include her multiple medical comorbidities and decreased functional status. ��������������������������������������������� <ELECTRONICALLY SIGNED> ���������������������������������������� By: Rohan Amador MD ��������������������������������������������� 06/10/19 0937 [id number] Rohan Amador MD /[facility]
--- NOTE | 2019-06-10 18:24 | NUR ---
ASSUMED CARES AT 0700. PT AWAKE, ALERT AND ORIENTED*4. DENIES PAIN. VITALS REMAIN STABLE. ABDOMEN REMAINS SOFT BUT DISTENDED/OBESE, PT REPORTS REGULAR STOOLS DAILY, STOOL SOFTENORS ADMINISTERED BUT PT REFUSED MIRALAX. SACRAL WOUND CLEANED AND DRESSING CHANGED. PT IS SBA FOR TRANSFERS, TOLERATES WELL AND CALLS APPROPRIATELY. CONTINUES TO SHOW PROGRESS TOWARDS DC GOALS. Q1H VISUAL CHECKS. CALL LIGHT WITHIN REACH. FALL PRECAUTIONS IN PLACE
[2019-06-10 20:23] VITALS: BP 106/61
--- NOTE | 2019-06-11 00:38 | NUR ---
PT ASSESSMENT DONE AND VSS. MEDS GIVEN TOLERATED. FALL PRECAUTIONS IN PLACE. SLEEPING WELL. WILL CONTINUE TO MONITOR.
[2019-06-11 07:30] VITALS: BP 119/73
--- NOTE | 2019-06-11 13:27 | NUR ---
Nutrition: pt continues on rehab unit eating 75-100% of meals and drinking 100% of most supplements. Receives ensure max daily and Kike BID. No weight since 05/28. REC obtain. Constipation resolved with daily stool softener. Meds reviewed. BG 155-198. A1C 6.6. Low nutrition risk.
--- NOTE | 2019-06-11 20:05 | NUR ---
ASSUMED CARES AT 0700. PT AWKE, ALERT AND ORIENTED*4. DENIES PAIN. VITALS REMAIN STABLE. ABDOMEN REMAINS SOFT, OBESE/DISTENDED, BS ACTIVE*4, *1 BM TODAY. SACRAL WOUND REMAIN DRY AND INTACT. PT UP WITH SBA, GB AND WALKER AND TOLERATED WELL. CALLED APPROPRIATELY AND ONTIME FOR HER 5PM MEDICATIONS. Q1H VISUAL CHECKS. CALL LIGHT WITHIN REACH. FALL PRECAUTIONS IN PLACE
[2019-06-11 20:15] VITALS: BP 119/56
--- NOTE | 2019-06-12 02:16 | NUR ---
PT ALERT AND ORIENTED X 4. PT REFUSES TO BE TURNED Q2H. COCCYX DRESSING C/D/I. PT DENIES PAIN OR DISCOMFORT. BED ALARM ON FOR SAFETY. PT APPEARS TO BE SLEEPING ON HOURLY ROUNDS.
[2019-06-12 08:48] VITALS: BP 115/53
--- NOTE | 2019-06-12 11:11 | NUR ---
ASSUMED CARE AT 0700. PATIENT IS ALERT AND ORIENTED X4. PATIENT IS STAND,PIVOT TRANSFER TO W/C. PATIENT TIRADO'S, PRODUCT DEVELOPMENT CARPENTER ARE EQUAL. LUNGS ARE CLEAR. ABD IS SOFT WITH BSX4. UP TO THE BR WITH MIN ASSIST. PATIENT USES GRAB BARS TO TRANSFER. PATIENT VOIDED EVER COLORED URINE. UP IN W/C FOR MEALS. FALL AND SAFETY PROTOCOLS IN PLACE. DENIES PAIN AT THIS TIME. CONTINUES TO PROGRESS TOWARDS D/C GOALS. WILL CONTINUE TO MONITER.
[2019-06-12 20:27] VITALS: BP 108/64
--- NOTE | 2019-06-13 00:21 | NUR ---
PT ALERT AND ORIENTED X 4. UP IN W/C MOST OF EVENING. TRANSFERRED TO BED AT HS WITH ASSIST X 1. PT REFUSED MIRALAX AND SENNA AT HS. BP 108/64 AT HS. LISINOPRIL HELD PER PARAMETERS. PT DENIES PAIN OR DISCOMFORT. TAKES TYLENOL AT HS TO PREVENT PAIN. BED ALARM ON FOR SAFETY. PT APPEARS TO BE SLEEPING ON HOURLY ROUNDS.
--- NOTE | 2019-06-13 02:33 | NUR ---
PT REFUSES TO REPOSITION IN BED. OPTIFOAM TO APPLIED TO SACRAL WOUND.
[2019-06-13 10:35] VITALS: BP 107/61
[2019-06-13 19:50] VITALS: BP 108/58
--- NOTE | 2019-06-14 03:58 | NUR ---
assumed care at approx 1900 evening 06/13. pt sitting up in w/c at change of shift wheeling herself around unit with no problem. pt alert and oriented x4, pleasant and cooperative. pt voided in toilet before hs transferring herself from chair to bed. pt took hs meds with water no problems. pt appears to be sleeping soundly with hourly rounding checks. bed alarm on and call light in reach. will continue to monitor.
[2019-06-14 07:30] VITALS: BP 111/61
[2019-06-14 20:15] VITALS: BP 104/52
--- NOTE | 2019-06-14 20:23 | NUR ---
Assumed care approx. 0700 this AM. Patient ALOx4 and seems to be a good historian. Patient called out once for her medication which was after dinner this shift. Patient blood sugars treated twice at breakfast and dinner. Tylenol given once for back pain. BM noted today. Optifoam placed on wound per orders. Patient standby to toilet and using the walker from sitting to standing position. Patient progressing toward plan of care goals.
--- NOTE | 2019-06-14 23:42 | NUR ---
PT ASSESSMENT DOME AND VSS. MEDS GIVEN ORDERED AND WELL TOLERATED. FALL PRECAUTIONS IN PLACE. SLEEPING. WILL CONTINUE TO MONTIOR.
[2019-06-15 07:20] VITALS: BP 127/63
--- NOTE | 2019-06-15 10:30 | NUR ---
PT WORKING WITH THERAPY. PT ABLE TO STAND AND WALK TO BATHROOM WITH WALKER. PT SITTING IN W/C. PT TALKING ABOUT IF SHE WILL NEED INSULIN WHEN GOING HOME. PT EXCITED ABOUT GOING HOME. PT HAS DRESSING TO SACRAL AREA WITH DRESSING. PT STATED SHE IS UNABLE TO REACH BEHIND HER TO CHANGE DRESSING.
--- NOTE | 2019-06-15 11:28 | NUR ---
ADM TYLENOL 325MG 2 TABS PO FOR PAIN.
--- NOTE | 2019-06-15 14:00 | NUR ---
team meeting, reccomendation, cont with dc home on with hh ( pt, ot, st nursing and sw).
--- NOTE | 2019-06-15 15:24 | NUR ---
dp sent referal to [place]. Patient to dc tomorrow. needs pt, ot, nursing st, sw
--- NOTE | 2019-06-15 15:45 | NUR ---
CHANGED DRESSING TO SACRAL AREA. PT ABLE TO STAND UP FROM W/C. CLEANED WITH SALINE AND APPLIED MEPILEX TO SACRAL AREA.
[2019-06-15 19:05] VITALS: BP 115/51
--- NOTE | 2019-06-16 00:57 | NUR ---
PT ALERT AND ORIENTED X 4. TRANSFERS FROM W/C TO TOILET WITH ASSIST X 1 WITHOUT DIFFICULTY. PT REFUSED MIRALAX AT HS. BP 115/51 AT HS. LISINOPRIL HELD PER PARAMETERS. PT DENIES PAIN OR DISCOMFORT. TAKES TYLENOL AT HS PREVENTATIVE. DRESSING TO COCCYX C/D/I. BED ALARM ON FOR SAFETY. PT APPEARS TO BE SLEEPING ON HOURLY ROUNDS.
[2019-06-16 07:59] VITALS: BP 125/55
[2019-06-16 10:08] VITALS: BP 125/55
[2019-06-16] MEDS ORDERED: MIRALAX17 GM PO ×2 (10:21→11:42)
[2019-06-16] MEDS ORDERED: LIPITOR10 MG PO (10:21)
[2019-06-16] MEDS ORDERED: SENNA-TIME S T1 EACH PO (10:44)
--- NOTE | 2019-06-16 11:17 | NUR ---
ASSUMED CARE AT 0700. PATIENT IS ALERT AND ORIENTED X4. PATIENT TIRADO'S. RECRUITING AND SELECTION CONSULTANT ARE EQUAL. LUNGS ARE CLEAR. ABD IS SOFT WITH BSX4. UP IN W/C TO BATHROOM TO VOID AND HAVE BM. PATIENT PLANS ON D/C LATER TODAY AFTER LUNCH. FALL AND SAFETY PROTOCOLS IN PLACE. DENIES PAIN AT THIS TIME. DRESSING APPLIED TO COCCYX AREA. PLANS ON GOING HOME WITH HOME HEALTH. DAUGHTER TO P/U AFTER 1 PM CONTINUES TO PROGRESS TOWARDS D/C GOALS. WILL CONTINUE TO [facility].
[2019-06-16 11:40] VITALS: BP 125/55
[2019-06-16] MEDS ORDERED: TYLENOL325 MG PO (11:42)
[2019-06-16 12:15] VITALS: BP 125/55
--- NOTE | 2019-06-16 14:10 | NUR ---
DISCHARGE ORDERS COMPLETED PER ATTENDING. PATIENT DISCHARGING TO HOME WITH HOME HEALTH SERVICES. DISCHARGE ORDERS FAXED TO [facility] INTA[facility]ORDINAT[facility]. VERIFIED ORDERS RECEIVED WITH PATRICE. PATRICE TO FACILITATE PATIENTS HH SERVICES. UNIT SW AWARE.
--- NOTE | 2019-06-16 16:11 | NUR ---
PATIENT GIVEN D/C INSTRUCTIONS AND SCRIPTS. PATIENT SENT HOME WITH DRESSING FOR HER COCCYX. PATIENT LEFT UNIT PER W/C WITH TRANSPORTATION TO [facility] FOR D/C HOME WITH HER DAUGHTER.
--- NOTE | 2019-06-17 16:10 | PLAN ---
[facility] [place] [address] REHAB UNIT PLAN OF CARE Name: WOLFGANG BLAIR Room #: 516-1 DIS IN M.R.#: [id number] Admission: 05/28/19 ������������������ Attend Phys: Rohan Amador MD Discharge: 06/16/19 ������������������ Date of : 41 Report #: [id number] THIS REPORT FOR: //name// CC: Rohan Patel DATE OF SERVICE: 05/31/2019 PROGRESS NOTE AND OVERALL PLAN OF CARE SUBJECTIVE: The patient is seen back today in followup. She is in no distress. Last recorded temperature 98.4, pulse 101, respirations 18, blood pressure 136/58. No calf swelling. She is on a low air loss mattress. Transfers have been dependent actually bed to wheelchair, max assist x 2 for bed mobility. Lower body dressing has been dependent. She does have mild cognitive deficits. ASSESSMENT: 1. Fall with possible closed head injury. 2. Face laceration, status post repair. 3. Right large toe fracture. 4. Urinary tract infection. 5. Left leg pain and x-rays negative, but with significant osteopenia. 6. Generalized weakness and debilitation. 7. Diabetes mellitus type 2. 8. Hypertension. 9. Exogenous obesity. PLAN: The overall plan of care is based on the preadmission screen, post-admission physician evaluation and information garnered from therapy assessments. 1. Estimated length of stay probably at least 10 days to 2 weeks and may be longer with her lower functional level currently. 2. Medical prognosis is reasonably good. 3. Anticipated interventions includes the interdisciplinary acute inpatient rehabilitation program. 4. Anticipated functional outcomes would be for her to improve as far as transfers, mobility, ADLs as well as further assessment and improvement in cognition, so she can return back to the home setting. 5. Discharge destination would be back to her apartment where she was wheelchair bound and independent at a wheelchair level premorbidly. She does have family that assists. 6. Expected therapy by discipline includes PT, OT and speech 1 hour per day [facility] [address] [place] [address] REHAB UNIT PLAN OF CARE Name: ROSSYWOLFGANGINDER BALDERRAMA Room #: 516-1 [facility] IN .R.#: [id number] Admission: 05/28/19 ������������������ Attend Phys: Rohan Amador MD Discharge: 06/16/19 ������������������ Date of : 41 Report #: [id number] each five days a week throughout the duration of the acute inpatient rehabilitation stay. ��������������������������������������������� <ELECTRONICALLY SIGNED> ���������������������������������������� By: Rohan Amador MD ��������������������������������������������� 06/17/19 1610 0848 1908 Rohan Amador MD /nt
== END 2019-06-16 16:09 | disposition home health service (06) | DRG 562 ==
LOC: ENTRNSPT 06-16 15:51
PROVIDERS: Nurse Practitioner; Nurse Practitioner Family; ADMIT Physical Medicine & Rehabilitation
DX: S43.402A Unspecified sprain of left shoulder joint, initial encounter (principal); L89.153 Pressure ulcer of sacral region, stage 3; N39.0 Urinary tract infection, site not specified; E44.1 Mild protein-calorie malnutrition; S01.81XA Laceration without foreign body of other part of head, initial encounter; W18.39XA Other fall on same level, initial encounter; E78.5 Hyperlipidemia, unspecified; S92.401A Displaced unspecified fracture of right great toe, initial encounter for closed fracture; M85.80 Other specified disorders of bone density and structure, unspecified site; E11.9 Type 2 diabetes mellitus without complications; E66.09 Other obesity due to excess calories; J45.909 Unspecified asthma, uncomplicated; E78.00 Pure hypercholesterolemia, unspecified; M81.0 Age-related osteoporosis without current pathological fracture; Z60.2 Problems related to living alone; I95.9 Hypotension, unspecified; E03.9 Hypothyroidism, unspecified; M19.90 Unspecified osteoarthritis, unspecified site; E55.9 Vitamin D deficiency, unspecified; K59.00 Constipation, unspecified; B96.1 Klebsiella pneumoniae [K. pneumoniae] as the cause of diseases classified elsewhere; I10 Essential (primary) hypertension; Y93.89 Activity, other specified; Y92.89 Other specified places as the place of occurrence of the external cause; Y99.8 Other external cause status; Z68.33 Body mass index [BMI] 33.0-33.9, adult; Z88.1 Allergy status to other antibiotic agents; Z99.3 Dependence on wheelchair
CPT/HCPCS: 10112

== ENCOUNTER → 2019-07-01 | Outpatient (CLI) | payer OTHER, MEDICARE ==
[~2019-07-01] MED LIST changes: +LIPITOR10 MG PO; +SENNA-TIME S T1 EACH PO
== END ==
LOC: HYPER 06-22 08:29
DX: E11.622 Type 2 diabetes mellitus with other skin ulcer (principal); L89.303 Pressure ulcer of unspecified buttock, stage 3; L98.411 Non-pressure chronic ulcer of buttock limited to breakdown of skin; L89.153 Pressure ulcer of sacral region, stage 3; L98.491 Non-pressure chronic ulcer of skin of other sites limited to breakdown of skin; E44.1 Mild protein-calorie malnutrition; R26.89 Other abnormalities of gait and mobility; G31.84 Mild cognitive impairment of uncertain or unknown etiology; M85.80 Other specified disorders of bone density and structure, unspecified site; M19.90 Unspecified osteoarthritis, unspecified site; E78.5 Hyperlipidemia, unspecified; J45.909 Unspecified asthma, uncomplicated; R54 Age-related physical debility; Z79.84 Long term (current) use of oral hypoglycemic drugs; Z91.81 History of falling; Z79.82 Long term (current) use of aspirin

== ENCOUNTER → 2019-09-14 | Outpatient (CLI) | payer OTHER, MEDICARE | LOC: NUC 08:20 | DX: M81.0 Age-related osteoporosis without current pathological fracture (principal); E28.39 Other primary ovarian failure; Z78.0 Asymptomatic menopausal state ==

== ENCOUNTER → 2019-10-04 | Outpatient (CLI) | payer OTHER, MEDICARE | LOC: HYPER 08:11 | DX: E11.622 Type 2 diabetes mellitus with other skin ulcer (principal); L89.153 Pressure ulcer of sacral region, stage 3; L98.491 Non-pressure chronic ulcer of skin of other sites limited to breakdown of skin; L89.301 Pressure ulcer of unspecified buttock, stage 1; L98.411 Non-pressure chronic ulcer of buttock limited to breakdown of skin; E44.1 Mild protein-calorie malnutrition; E78.5 Hyperlipidemia, unspecified; G31.84 Mild cognitive impairment of uncertain or unknown etiology; R26.89 Other abnormalities of gait and mobility; R54 Age-related physical debility; I10 Essential (primary) hypertension; J45.909 Unspecified asthma, uncomplicated; M19.90 Unspecified osteoarthritis, unspecified site; M85.80 Other specified disorders of bone density and structure, unspecified site; Z79.84 Long term (current) use of oral hypoglycemic drugs; Z79.82 Long term (current) use of aspirin ==

== ENCOUNTER → 2020-01-21 | Outpatient (CLI) | payer OTHER, MEDICARE | LOC: HYPER 09:17 | DX: E11.622 Type 2 diabetes mellitus with other skin ulcer (principal); L89.153 Pressure ulcer of sacral region, stage 3; L98.491 Non-pressure chronic ulcer of skin of other sites limited to breakdown of skin; L89.301 Pressure ulcer of unspecified buttock, stage 1; L98.411 Non-pressure chronic ulcer of buttock limited to breakdown of skin; R54 Age-related physical debility; E44.1 Mild protein-calorie malnutrition; R26.89 Other abnormalities of gait and mobility; I10 Essential (primary) hypertension; E78.5 Hyperlipidemia, unspecified; M19.90 Unspecified osteoarthritis, unspecified site; M85.80 Other specified disorders of bone density and structure, unspecified site; J45.909 Unspecified asthma, uncomplicated; G31.84 Mild cognitive impairment of uncertain or unknown etiology; Z91.81 History of falling; Z68.30 Body mass index [BMI] 30.0-30.9, adult; Z79.84 Long term (current) use of oral hypoglycemic drugs; Z79.82 Long term (current) use of aspirin ==

== ENCOUNTER → 2020-02-21 | Outpatient (CLI) | payer OTHER, MEDICARE | LOC: HYPER 08:01 | DX: E11.622 Type 2 diabetes mellitus with other skin ulcer (principal); L89.153 Pressure ulcer of sacral region, stage 3; L98.491 Non-pressure chronic ulcer of skin of other sites limited to breakdown of skin; L89.311 Pressure ulcer of right buttock, stage 1; L89.322 Pressure ulcer of left buttock, stage 2; L98.411 Non-pressure chronic ulcer of buttock limited to breakdown of skin; E44.1 Mild protein-calorie malnutrition; R54 Age-related physical debility; R26.89 Other abnormalities of gait and mobility; G31.84 Mild cognitive impairment of uncertain or unknown etiology; I10 Essential (primary) hypertension; E78.5 Hyperlipidemia, unspecified; M19.90 Unspecified osteoarthritis, unspecified site; J45.909 Unspecified asthma, uncomplicated; M85.80 Other specified disorders of bone density and structure, unspecified site; Z68.30 Body mass index [BMI] 30.0-30.9, adult; Z91.81 History of falling; Z79.84 Long term (current) use of oral hypoglycemic drugs; Z79.82 Long term (current) use of aspirin ==

== ENCOUNTER → 2020-03-14 | Outpatient (CLI) | payer OTHER, MEDICARE | LOC: HYPER 12:59 | PROVIDERS: ATTEND Emergency Medicine | DX: E11.622 Type 2 diabetes mellitus with other skin ulcer (principal); L89.153 Pressure ulcer of sacral region, stage 3; L98.491 Non-pressure chronic ulcer of skin of other sites limited to breakdown of skin; E44.1 Mild protein-calorie malnutrition; E78.5 Hyperlipidemia, unspecified; G31.84 Mild cognitive impairment of uncertain or unknown etiology; R26.89 Other abnormalities of gait and mobility; R54 Age-related physical debility; I10 Essential (primary) hypertension; J45.909 Unspecified asthma, uncomplicated; M19.90 Unspecified osteoarthritis, unspecified site; M87.88 Other osteonecrosis, other site; Z79.84 Long term (current) use of oral hypoglycemic drugs; Z79.82 Long term (current) use of aspirin ==

== ENCOUNTER → 2020-03-14 | Outpatient (CLI) | payer OTHER, MEDICARE | LOC: BC 08:28 | PROVIDERS: ATTEND Neuromusculoskeletal Medicine & OMM | DX: Z12.31 Encounter for screening mammogram for malignant neoplasm of breast (principal) ==

== ENCOUNTER → 2020-04-24 | Outpatient (CLI) | payer OTHER, MEDICARE | LOC: HYPER 08:53 | PROVIDERS: ATTEND Emergency Medicine | DX: E11.622 Type 2 diabetes mellitus with other skin ulcer (principal); L89.153 Pressure ulcer of sacral region, stage 3; L98.491 Non-pressure chronic ulcer of skin of other sites limited to breakdown of skin; R54 Age-related physical debility; E44.1 Mild protein-calorie malnutrition; R26.89 Other abnormalities of gait and mobility; G31.84 Mild cognitive impairment of uncertain or unknown etiology; I10 Essential (primary) hypertension; E78.5 Hyperlipidemia, unspecified; M19.90 Unspecified osteoarthritis, unspecified site; M85.80 Other specified disorders of bone density and structure, unspecified site; J45.909 Unspecified asthma, uncomplicated; Z91.81 History of falling; Z68.30 Body mass index [BMI] 30.0-30.9, adult; Z79.84 Long term (current) use of oral hypoglycemic drugs; Z79.82 Long term (current) use of aspirin ==

== ENCOUNTER → 2020-05-23 | Outpatient (CLI) | payer OTHER, MEDICARE | LOC: HYPER 08:00 | PROVIDERS: ATTEND Emergency Medicine | DX: E11.622 Type 2 diabetes mellitus with other skin ulcer (principal); L89.153 Pressure ulcer of sacral region, stage 3; L98.491 Non-pressure chronic ulcer of skin of other sites limited to breakdown of skin; R54 Age-related physical debility; E44.1 Mild protein-calorie malnutrition; R26.89 Other abnormalities of gait and mobility; G31.84 Mild cognitive impairment of uncertain or unknown etiology; I10 Essential (primary) hypertension; E78.5 Hyperlipidemia, unspecified; M19.90 Unspecified osteoarthritis, unspecified site; M85.80 Other specified disorders of bone density and structure, unspecified site; J45.909 Unspecified asthma, uncomplicated; Z68.30 Body mass index [BMI] 30.0-30.9, adult; Z91.81 History of falling; Z79.84 Long term (current) use of oral hypoglycemic drugs; Z79.82 Long term (current) use of aspirin ==

== ENCOUNTER → 2020-06-21 | Outpatient (CLI) | payer OTHER, MEDICARE | LOC: HYPER 08:03 | PROVIDERS: ATTEND Emergency Medicine | DX: E11.622 Type 2 diabetes mellitus with other skin ulcer (principal); L89.153 Pressure ulcer of sacral region, stage 3; L98.491 Non-pressure chronic ulcer of skin of other sites limited to breakdown of skin; R54 Age-related physical debility; E66.01 Morbid (severe) obesity due to excess calories; E44.1 Mild protein-calorie malnutrition; E78.5 Hyperlipidemia, unspecified; R26.89 Other abnormalities of gait and mobility; G31.84 Mild cognitive impairment of uncertain or unknown etiology; I10 Essential (primary) hypertension; J45.909 Unspecified asthma, uncomplicated; M85.80 Other specified disorders of bone density and structure, unspecified site; M19.90 Unspecified osteoarthritis, unspecified site; Z79.84 Long term (current) use of oral hypoglycemic drugs; Z79.82 Long term (current) use of aspirin; Z68.30 Body mass index [BMI] 30.0-30.9, adult ==

== ENCOUNTER → 2020-07-28 | Outpatient (CLI) | payer OTHER, MEDICARE | LOC: HYPER 08:01 | PROVIDERS: ATTEND Emergency Medicine Emergency Medical Services | DX: E11.622 Type 2 diabetes mellitus with other skin ulcer (principal); L89.153 Pressure ulcer of sacral region, stage 3; L98.492 Non-pressure chronic ulcer of skin of other sites with fat layer exposed; S31.829D Unspecified open wound of left buttock, subsequent encounter; S31.819D Unspecified open wound of right buttock, subsequent encounter; R54 Age-related physical debility; E44.1 Mild protein-calorie malnutrition; R26.89 Other abnormalities of gait and mobility; G31.84 Mild cognitive impairment of uncertain or unknown etiology; I10 Essential (primary) hypertension; E78.5 Hyperlipidemia, unspecified; M85.80 Other specified disorders of bone density and structure, unspecified site; J45.909 Unspecified asthma, uncomplicated; Z68.30 Body mass index [BMI] 30.0-30.9, adult; Z91.81 History of falling; Z79.84 Long term (current) use of oral hypoglycemic drugs; Z79.82 Long term (current) use of aspirin; X58.XXXD Exposure to other specified factors, subsequent encounter ==

== ENCOUNTER → 2021-01-22 | Outpatient (CLI) | payer OTHER, MEDICARE ==
[~2021-01-22] MED LIST changes: +ST. JOHN'S WOR300 MG PO; +VITAMIN B-121000 MC2 SUBLING; +VITAMIN D325 MC3 PO
== END ==
LOC: LAB 13:42
PROVIDERS: ATTEND Ophthalmology
DX: Z01.812 Encounter for preprocedural laboratory examination (principal); Z20.822 Contact with and (suspected) exposure to COVID-19

== ENCOUNTER 2021-01-25 07:22 | Day surgery (SDC) | payer OTHER, MEDICARE ==
[~2021-01-25] VITALS: Ht 152.4 cm; Wt 59.9 kg
--- NOTE | ~2021-01-25 | O ---
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 PROCEDURES: Bilateral lower lid ectropion repair with bilateral transconjunctival lower lid and cheek lift. SURGEON: Aden Mandujano MD TAPE MACHINE TAILER: None. ANESTHESIA: MAC. COMPLICATIONS: None. 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 She has significant dermatopathy. The current procedure is undertaken in order to attempt to preserve her ocular surface milieu and increase her level of function. Her risk of recurrence of this problem was known to be high because of her concurrent dermatologic disease. Informed consent was obtained to include but not limited to the potential risk for loss of vision, bleeding, infection, and the potential need for further surgery or treatment. DESCRIPTION OF PROCEDURE: The patient was taken to the operating room where 2% Xylocaine with epinephrine mixed with equal parts of 0.75% Marcaine with Wydase was administered ____ and transconjunctivally to each lower lid lateral canthus, medial canthus, cheek and infratemporal fossa. She was then prepped and draped in the usual sterile fashion. [address] [address] OPERATIVE REPORT Name: ROSSYWOLFGANG Room #: DEP [facility] [place].R.#: [id number] Admission: 01/25/21 Attend Phys: Aden Mandujano MD Discharge: 01/25/21 Date of : 41 Report #: [id number] Attention was first turned to the left side. The left lateral canthus was then clamped with a Arriaga clamp. A sharp canthotomy and cantholysis was then performed and hemostasis was re-achieved. A tarsal strip was then prepared laterally removing the lash bearing portion of the redundant lid margin. A transconjunctival incision was then made below the inferior border of the tarsal plate across the width of the lid. Hemostasis was then re-achieved. The dissection was then carried down into the premalar space and the lower lid and cheek tissues were then elevated and resuspended with interrupted 5-0 chromic sutures. The lower lid and cheek elevated well. The inferior punctum was then dilated with a punctum dilator and a 1-snip punctoplasty performed. Attention was then turned to completion of the ectropion repair. The tarsal strip was secured to the internal portion of the lateral orbital tubercle with interrupted 5-0 Prolene sutures. The subcutaneous structures and the skin were then closed with interrupted 6-0 plain gut sutures. Attention was then turned to the opposite side where the same procedures were performed. The wounds were then cleaned and dressed with erythromycin ophthalmic ointment. The patient subsequently transported to the recovery area, having tolerated the procedures well with no anesthetic or operative complications being noted. MD MILAN Jones/MARI/ERICK By: [id number] Aden Mandujano MD /nt
[2021-01-25 10:22] VITALS: BP 121/48
== END 2021-01-25 13:45 | disposition home or self-care (01) ==
LOC: OR 07:22 → TBA 07:23 → OR 13:37 → EDSTATUS 15:52
PROVIDERS: ATTEND Ophthalmology
DX: H02.115 Cicatricial ectropion of left lower eyelid (principal); H02.112 Cicatricial ectropion of right lower eyelid; H02.535 Eyelid retraction left lower eyelid; H02.532 Eyelid retraction right lower eyelid; H02.205 Unspecified lagophthalmos left lower eyelid; H02.202 Unspecified lagophthalmos right lower eyelid; H18.9 Unspecified disorder of cornea; I10 Essential (primary) hypertension; E78.5 Hyperlipidemia, unspecified; J45.909 Unspecified asthma, uncomplicated; E11.9 Type 2 diabetes mellitus without complications; M19.90 Unspecified osteoarthritis, unspecified site; M81.0 Age-related osteoporosis without current pathological fracture; Z98.890 Other specified postprocedural states; Z79.899 Other long term (current) drug therapy; Z98.41 Cataract extraction status, right eye; Z98.42 Cataract extraction status, left eye; Z88.8 Allergy status to other drugs, medicaments and biological substances
CPT/HCPCS: 50010; 50101; 50386; 50398; 51636; 56527; 56531; 62110; 62850; 70005

== ENCOUNTER → 2021-05-01 | Outpatient (CLI) | payer OTHER, MEDICARE | LOC: BC 10:46 | PROVIDERS: ATTEND Neuromusculoskeletal Medicine & OMM | DX: Z12.31 Encounter for screening mammogram for malignant neoplasm of breast (principal) ==

== ENCOUNTER 2021-10-07 23:31 | Inpatient (IN) | payer OTHER, MEDICARE ==
[~2021-10-07] VITALS: Ht 152.4 cm; Wt 47.6 kg
--- NOTE | ~2021-10-07 | EMS ---
[facility] [address] [place] [address] EMS Patient Care Report Name: WOLFGANG BLAIR Room #: 441-P ADM IN M.R.#: [id number] Admission: 10/08/21 Attend Phys: Poncho Valenzuela MD Discharge: Date of : 41 Report #: [id number] THIS REPORT FOR: //name// Report Transmitted: 10/17/2021 06:42 EMS Care Summary [place], [place]/[facility] Incident [id number] @ 10/07/2021 22:42 Incident Location [address] [facility] 719 Patient WOLFGANG BLAIR Female, 81 Years 1940 Patient Address [address] [place] [address] Patient History Asthma,Diabetes,Hypertension (HTN), Patient Allergies Amoxicillin, Patient Medications Unknown, Chief Complaint HIP PAIN Disposition Transported No Lights/[place] Dispatch Reason Falls Transported To [facility] Narrative PATIENT IS AT HOME IN HER APARTMENT, SITTIN IN HER WC, PATIENT IS ALERT AND TALKING, C/O PAIN TO HER L HIP SECONDARY TO A FALL IN HER BATHROOM, PATIENT WAS ON THE FLOOR AND UNABLE TO GET UP, T13 ARRIVED AND HELPED HER UP INTO HER [facility] [address] [place] [address] EMS Patient Care Report Name: WOLFGANG BLAIR Room #: 441-P [facility] IN [place]#: [id number] Admission: 10/08/21 Attend Phys: Poncho Valenzuela MD Discharge: Date of : 42 Report #: [id number] CHAIR, PATIENT HAS NO OBVIOUS DEFORMITY, IS ABLE TO BARE WEIGHT AND TAKE STEPS BUT PATIENT IS NOW AFRAID SHE IS GOING TO FALL AGAIN AND IS HAVING PAIN WITH WEIGHT BARING. PATIENT PLACED ON THE COT, V.S. ESTABLISHED IN THE UNIT, AND PATIENT TRASNPORTED TO THE ER, 0 S/S OF DISTRESS ENROUTE. NO OTHER COMPLAINTS. Initial Vitals @23:12P: 104,SpO2: 83, @23:04P: 81,SpO2: 82, @23:05P: 105,R: 16,BP: 128/57,Pain: 2/10,GCS: 15,SpO2: 84,Revised Trauma: 12, Assessments @22:57MENTAL:Place Oriented,Time Oriented,Event Oriented,Person Oriented,SKIN:No Abnormalities,HEENT:LUNG SOUNDS:General: No Abnormalities,Left Upper: No Abnormalities,Right Upper: No Abnormalities,Left Lower: No Abnormalities,Right Lower: No Abnormalities,ABDOMEN:General: No Abnormalities,Left Upper: No Abnormalities,Right Upper: No Abnormalities,Left Lower: No Abnormalities,Right Lower: No Abnormalities,PELVIS//GI:No Abnormalities,EXTREMITIES:Left Leg: Other,Left Arm: No Abnormalities,Right Arm: No Abnormalities,PULSE:Radial: 2+ Normal,NEURO:No Abnormalities, Impression Injury of Hip Procedures @22:57 ALS Assessment Response: UnchangedSucceeded Timeline :,Call Received 22:41,Dispatch Notified 22:42,Dispatched 22:45,En Route 22:54,On Scene 22:57,At Patient 22:57,ALS Assessment,Response: UnchangedSucceeded, 23:04,BP: / M,PULSE: 81,RR: R,SPO2: 82 Ox,ETCO2: ,BG: ,PAIN: ,GCS: , 23:05,BP: 128/57 M,PULSE: 105,RR: 16 R,SPO2: 84 Ox,ETCO2: ,BG: ,PAIN: 2,GCS: 15, 23:10,Depart Scene 23:12,BP: / M,PULSE: 104,RR: R,SPO2: 83 Ox,ETCO2: ,BG: ,PAIN: ,GCS: , 23:31,At Destination 23:40,Call Closed Disclaimer v1.1 Copyright 2021 [employer] This EMS Care Summary contains data elements from the applicable legal record [address] [address] EMS Patient Care Report Name: WOLFGANG BLAIR Room #: 441-P [facility] IN [facility].#: [id number] Admission: 10/08/21 Attend Phys: Poncho Valenzuela MD Discharge: Date of : 42 Report #: [id number] (which may be displayed differently). It is designed to provide pertinent information for the following purposes: continuity of care, clinical quality, and state data reporting. The complete legal record is available to ED staff and administrators of the receiving hospital in [facility]'s Patient Tracker. All data is provided "as is."
[2021-10-07 23:33] VITALS: BP 140/48
[2021-10-08 00:54] LABS: HEMATOCRIT 32.4 % (37.0-47.0); HEMOGLOBIN 10.6 gm/dL (12.0-15.0); MCH 28.7 pg (26.0-34.0); MCHC 32.8 g/dL (28.0-37.0); MCV 87.7 fL (80.0-100.0); PLATELET COUNT 542 thou/uL (150-400); RDW 14.8 % (10.5-14.5); WBC 13.2 thou/uL (4.0-11.0)
[2021-10-08 00:58] LABS: CALCIUM 10.3 mg/dL (8.5-10.1); CREATININE 0.9 mg/dL (0.6-1.0)
[2021-10-08 01:18] LABS: URINE BILIRUBIN NEGATIVE (Negative); URINE BLOOD NEGATIVE (Negative); URINE CLARITY CLEAR; URINE COLOR YELLOW; URINE GLUCOSE-RANDOM* NEGATIVE (Negative); URINE KETONES NEGATIVE (Negative); URINE LEUKOCYTES-REFLEX NEGATIVE (Negative); URINE NITRITE-REFLEX NEGATIVE (Negative); URINE PROTEIN (DIPSTICK) NEGATIVE (Negative); URINE SPECIFIC GRAVITY 1.025 (1.005-1.035); URINE UROBILINOGEN 0.2 E.U./dl (0.2-1.0)
[2021-10-08 01:38] LABS: ABSOLUTE NEUTROPHILS 5.3 thou/uL (1.4-8.2); ATYPICAL LYMPHS 1 %; LARGE PLATELETS OCCASIONAL
[2021-10-08 12:09] VITALS: BP 114/56
--- NOTE | 2021-10-08 20:04 | NUR ---
TRANSITION OF CARE HAS BEEN FAXEED
--- NOTE | 2021-10-08 21:00 | NUR ---
Pt. admitted to the unit from the emergency room accompanied by staff. She is alert and oriented. Brace in place to left leg. Bed alarm is on. Pt. oriented to staff and room.
[2021-10-09 00:39] VITALS: BP 106/47
[2021-10-09 01:06] LABS: GLYCOHEMOGLOBIN (HGB A1C) 6.3 % (4.8-5.6)
--- NOTE | 2021-10-09 01:06 | NUR ---
Pt. resting quietly in the bed with no complaints. Admission assessment and history is completed. Bed alarm is on.
[2021-10-09 07:19] LABS: HEMATOCRIT 28.3 % (37.0-47.0); MCH 28.1 pg (26.0-34.0); MCV 87.9 fL (80.0-100.0); RBC 3.21 mil/uL (4.20-5.00); WBC 9.7 thou/uL (4.0-11.0)
[2021-10-09 07:23] VITALS: BP 119/57
[2021-10-09 07:40] LABS: CALCIUM 9.1 mg/dL (8.5-10.1); CREATININE 0.7 mg/dL (0.6-1.0); POTASSIUM 4.5 mmol/L (3.5-5.1)
--- NOTE | 2021-10-09 13:03 | NUR ---
Pt with severe folate deficiency, needs replacement
--- NOTE | 2021-10-09 13:55 | NUR ---
ASSUMED PT CARE THIS AM. PT A&OX4, ABLE TO MAKE NEEDS KNOWN. PATIENT ANXIOUS THIS MORNING, BUT COOPERATIVE WITH CARES. [facility] CONTACTED THIS SHIFT REGARDING BRACE ORDERED. PATIENT IS CONTINENT AND USES A BEDPAN WHEN NEEDED. PATIENT HAS DRY, FLAKING SKIN OVER ENTIRE BODY. PATIENT IS ON ROOM AIR. MEDICATIONS TAKEN WITHOUT ISSUE. IV REMAINS SALINE LOCKED. FALL PRECAUTIONS ARE IN PLACE, CALL LIGHT WITHIN REACH.
[2021-10-09 16:01] VITALS: BP 91/37
[2021-10-09 20:14] VITALS: BP 106/50
--- NOTE | 2021-10-09 21:00 | HC ---
[facility] [place] [address] CONSULTATION Name: WOLFGANG BLAIR Room #: 441-P ADM IN M.R.#: [id number] Admission: 10/08/21 Attend Phys: Poncho Valenzuela MD Discharge: Date of : 42 Report #: [id number] THIS REPORT FOR: cc: Jacky Patel,Agustín Guzman MD ~ DATE OF SERVICE: 10/08/2021 INFECTIOUS DISEASE CONSULTATION REASON FOR CONSULTATION: I was asked to evaluate concerning lower extremity cellulitis in the setting of eczema. HISTORY OF PRESENT ILLNESS: The patient is an 81-year-old with history of diabetes, hypertension, seizure disorder, asthma, osteoporosis and eczema. She stated that she has been evaluated by Dermatology several months ago for her ongoing eczema. This has worsened over the last several weeks. Topical therapy has not improved her situation. The patient lives alone and is essentially wheelchair bound. She was transferring from wheelchair to a toilet, last minute fell. Developed pain to her left knee. Found to have a proximal fibular fracture. She was also found by nursing to have bed bugs on her sheets. Denies any fever, chills or sweats. She is COVID negative. She has had several falls in the past with fractures. REVIEW OF SYSTEMS: A 14-point review of system was negative other than what has been described above. ALLERGIES: AMOXICILLIN. MEDICATIONS: As noted on her MAR. PAST MEDICAL HISTORY: Diabetes, hypertension, hyperlipidemia, asthma, osteoporosis, osteoarthritis, multiple falls with right and right femur fracture, status post ORIF; tonsillectomy, bilateral cataract surgery, seizure disorder, hypothyroidism. FAMILY HISTORY: Diabetes. SOCIAL HISTORY: Nonsmoker, no significant alcohol intake. PHYSICAL EXAMINATION: GENERAL: She is afebrile and hemodynamically stable. She is alert and cooperative and pleasant. No acute distress. SKIN: She had extensive eczematous rash on face, neck, chest, back, upper and lower extremities. No palpable adenopathy. HEENT: Eyes without scleral icterus. She did have conjunctival injection. [facility] [address] [place] [address] CONSULTATION Name: WOLFGANG BLAIR Room #: 441-P [facility] IN M.R.#: [id number] Admission: 10/08/21 Attend Phys: Poncho Valenzuela MD Discharge: Date of : 42 Report #: [id number] Mouth without mucositis. NECK: Supple. LUNGS: Clear. HEART: Regular, without murmur. ABDOMEN: Soft and nontender. No hepatosplenomegaly or mass. EXTREMITIES: Without clubbing, cyanosis or edema. She does have bilateral lower extremity cellulitis, complicating her eczematous rash. NEUROLOGIC: Cranial nerves intact. Strength in the upper and lower extremities within normal limits. She had a left lower extremity brace in place. PSYCHIATRIC: Mood without anxiety. LABORATORY DATA: Reviewed. Microbiology reviewed. X-rays of the lower extremity reviewed. IMPRESSION: 1. Diffuse eczema with secondary cellulitis. 2. Wheelchair bound with a fall, now fractured left fibula. 3. Bed bugs. 4. Osteoporosis. 5. Diabetes. 6. Hypertension. 7. Hyperlipidemia. 8. Asthma. 9. Seizure disorder. RECOMMENDATIONS: 1. Treat with IV antibiotics and screen for methicillin-resistant Staphylococcus aureus. Treat eczema with topical and systemic treatment per attending or Dermatology if necessary. Bag or clothing and arrange for extermination of the bed bugs. 2. Immobilize left leg. Pending orthopedic surgery evaluation. <ELECTRONICALLY SIGNED> By: Agustín Bronson MD 10/09/212099 10 20 Agutsín Bronson MD /nt
--- NOTE | 2021-10-10 05:50 | NUR ---
ASSUMED CARE OF PT AT 1900. PT ASSESSED TO BE AOX4 81F PRESENTING POST FALLS. PT WAS ABLE TO REST THROUGHOUT MOST OF THE NIGHT WITH NO COMPLAINTS, VSS. PT IS EXTREMELY ANXIOUS, STABLE ON RA, IMMOBILIZER TO LL, TURNED WITH PILLOWS, ANTIBIOTIC LOTION APPLIED TO ALL SKIN WITH EGCZYMA, AND PRN MEDS GIVEN FOR PAIN AND ITCHING. WILL CONT TO MONITOR.
[2021-10-10 07:45] VITALS: BP 179/61
[2021-10-10 08:12] VITALS: BP 121/64
--- NOTE | 2021-10-10 10:09 | NUR ---
ASSUMED CARE OF PT AT 0700 THIS MORNING. PT IS A/OX4 AND HAS LT FIBULA FX AND FAILURE TO THRIVE. PT HAS PSORIASIS OVER FACE, ARMS, ABD AND BILAT LE. ASSESSMENTS NOTED IN CHART. PT DID EAT COMPLETE BREAKFAST. FALL PRECAUTIONS ARE IN PLACE. CALL LIGHT AND OTHER NEEDS ARE IN REACH. MEDS AND TX GIVEN NEEDED AND SCHEDULED. WILL CONTINUE TO MONITOR AND NOTE ANY CHANGES.
[2021-10-10 20:06] VITALS: BP 122/53
[2021-10-11 04:47] VITALS: BP 96/43
--- NOTE | 2021-10-11 06:26 | NUR ---
ASSUMED CARE OF PT AT 1900. PT ASSESSED TO BE AOX4 81F PRESENTING POST FIBULA FRACTURE. PT WAS ABLE TO REST QUIETLY IN BED THROUGHOUT THE NIGHT WITH NO COMPLAINTS, VSS. PT STABLE ON ROOM AIR, PSORIASIS TREATED WELL 2X WITH BOTH CREAMS ON ALL AREAS OF BODY (IMPROVING GREATLY WITH REGULAR TX), ABLE TO AMBULATE X1 WITH GB AND WALKER TO COMMODE, CONTINENT X2, AND HAS SOME ANXIETY. NO FURTHER COMPLAINTS, WILL CONT TO MONITOR.
[2021-10-11 07:19] VITALS: BP 125/49
--- NOTE | 2021-10-11 09:02 | NUR ---
met with patient she resides in independnent alone. She uses a walker in apt and commmunity. All needs on one level. Supportive dtr who drives her for apts. PCP was Dr Patel who retired. 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 She fell and admitted with fibulla fracture. She reports fall 2 weeks prior to recent fall. Reviewed rehab and post acute care. Patient has been on 5[facility] in past and interested in acute rehab. Gave her skilled medicare list to review. Requested [facility] eval. Case mgt following
--- NOTE | 2021-10-11 11:51 | NUR ---
1. Pt would like to speak with physician about her glipezide. 2. Continue to recommend folic acid supplementation. 3. Please obtain new weight to verify accuracy.
[2021-10-11 15:21] VITALS: BP 106/48
--- NOTE | 2021-10-11 17:45 | NUR ---
PT ALERT AND ORIENTED X 4. STATING SHE "FEELS MUCH BETTER' TODAY. DENIES PAIN. ABLE TO TRANSFER SELF WITH STAND-BY ASSISTANCE TO COMMODE. VOIDING WITHOUT DIFFICULTY. SMALL BM TODAY. ITCHING FROM DRY SKIN MUCH BETTER WITH CONTINUED LOTION APPLICATION. PLAN TO DC TO SNF, POSSIBLY TOMORROW. BS STABLE, VS STABLE
--- NOTE | 2021-10-11 18:02 | NUR ---
Robert gomez and patient not a candidate. Faxed referral to [facility]. Patient reports close to her dtr.
[2021-10-11 22:12] VITALS: BP 113/42
[2021-10-12 07:22] VITALS: BP 103/52
[2021-10-12 15:48] VITALS: BP 98/54
--- NOTE | 2021-10-12 17:40 | NUR ---
[facility] declined patient as of at this time. Updated patient referral to [facility]. Likely no weekend dc if not accepted for skilled over weekend
--- NOTE | 2021-10-12 18:19 | NUR ---
PATIENT VERY TEARFUL AND CRYING THIS AM. C/O BRACE PINCHING. ADJUSTED BRACE WITHOUT FURTHER ISSUES. UP TO COMMODE WITH STANDBY ASSIST.SCALING TO EXTREMETIES CONTINUES TO IMPROVE. VSS. BLOOD SUGARS STABLE. AWAITING TRANSFER TO SNF
[2021-10-12 20:04] VITALS: BP 127/60
--- NOTE | 2021-10-13 04:58 | NUR ---
PATIENT AOX4 MAKES NEEDS KNOWN. PATIENT TALKATIVE THIS SHIFT. PATIENT HAS LEFT FIBULAR FX. PATIENT HAS A BRACE ON LLE.PATIENT TURNED NEEDED. PATIENT ENCOURAGED FLUIDS.FALL PRECAUTION IN PLACE. PATIENT IN BED ASLEEP AT THIS TIME BREATHING REGULAR AND UNLABOURED.
[2021-10-13 07:01] VITALS: BP 127/60
[2021-10-13 15:47] VITALS: BP 128/46
--- NOTE | 2021-10-13 16:13 | NUR ---
patient sat in the chair for a few hour. tylenol given prn for pain, hydroxyzine given prn for anxiety. call light within reach, jose a continous monitoring.
[2021-10-13 19:55] VITALS: BP 115/58
--- NOTE | 2021-10-14 04:26 | NUR ---
RECEIVED CARE OF THIS PATIENT AT 1900. PATIENT ALERT AND ORIENTED X4. ON BEDREST D/T FX LEG. HAS BRACE ON THAT GOES FROM GROIN TO ANKLE. BRACE HAS HINGE SO PATIENT CAN BEND LEG. PATIENT STATES BRACE HEAVY AND IS HARD TO MOVE LEG. C/O PAIN, MED GIVEN. SLEPT LITTLE THIS SHIFT. NEEDED TO BE REPOSITIONED.
[2021-10-14 06:59] VITALS: BP 126/59
[2021-10-14 15:43] VITALS: BP 127/64
[2021-10-14 20:00] VITALS: BP 132/58
[2021-10-15 07:00] VITALS: BP 114/55
[2021-10-15 15:47] VITALS: BP 111/72
--- NOTE | 2021-10-15 17:59 | NUR ---
[facility] rec referral packet. They are possibly accepting and checking their bed status. Updated patient on process.
--- NOTE | 2021-10-15 18:53 | NUR ---
patient resting in bed, tylenol given prn for pain, call light within reach, brace is off per PT. will continous monitoring.
[2021-10-15 19:58] VITALS: BP 113/53
[2021-10-16 07:18] VITALS: BP 126/55
--- NOTE | 2021-10-16 10:49 | NUR ---
RE-ASSUMED CARE OF PT THIS MORNING AT 0700. PT IS A/OX4 WITH SOME FORGETFULNESS. PT HAS WHAT LOOKS TO BE SCALING PSORIASIS OR EXCEMA HEAD TO TOE. ASSESSMENTS NOTED IN CHART AND OTHERWISE UNREMARKABLE. FALL PRECAUTIONS ARE IN PLACE DUE TO WEAKNESS AND FX TO LT FIBULA. CALL LIGHT AND OTHER NEEDS ARE IN REACH. MEDS AND TX GIVEN NEEDED AND SCHEDULED. SHEILA CONTINUE TO MONITOR AND NOTE ANY CHANGES.
[2021-10-16 17:20] VITALS: BP 115/50
[2021-10-17 00:04] VITALS: BP 111/46
[2021-10-17 05:10] VITALS: BP 114/50
--- NOTE | 2021-10-17 06:40 | NUR ---
ASSUMED CARE OF PT AT 1900. PT ASSESSED TO BE AOX4 81F PRESENTING WITH SCALING PSORIASIS AND FIB FRACTURE. PT WAS ABLE TO REST THROUGHOUT THE NIGHT WITH FEW COMPLAINTS, VSS. PT HAS ELEVATED ANXIETY, CREAM APPLIED TO ALL SCALES, STABLE ON RA, X1 ASSIST WITH A WALKER, AND AWAITING PLACEMENT. NO FURTHER COMPLAINTS.
--- NOTE | 2021-10-17 10:41 | NUR ---
RE-ASSUMED CARE OF PT AT 0700 THIS MORNING. NO CHANGES SINCE REPORT GIVEN LAST NIGHT. PT IS A/OX4 AND OCCASSIONALY FORGETFUL. ASSESSMENTS NOTED IN CHART AND OTHERWISE UNREMARKABLE. PT IS LYING IN BED WITH WEDGE UNDER LT LEG TO MAINTAIN NEUTRAL POSITION. FALL PRECAUTIONS IN PLACE. CALL LIGHT AND OTHER NEEDS ARE IN REACH. MEDS AND TX GIVEN NEEDED AND SCHEDULED. WILL MONITOR AND NOTE ANY CHANGES.
[2021-10-17 16:02] VITALS: BP 116/49
--- NOTE | 2021-10-17 16:47 | NUR ---
Spoke with dtr and discussed dc planning. Updated [facility] unable to accept and plan for [facility]. Dtr in agreement with plan. Updated patient possible dc in am.
[2021-10-17 20:49] VITALS: BP 107/59
--- NOTE | 2021-10-18 05:48 | NUR ---
ASSUMED CARE OF PT AT 1900. PT ASSESSED TO BE ANXIOUS AOX4 81F PRESENTING POST FALL WITH FRACTURE AND SCALING PSORIASIS. PT WAS ABLE TO REST QUIETLY THROUGHOUT THE NIGHT WITH FEW COMPLAINTS, VSS. PT STABLE ON ROOM AIR, WEAK, X2 ASST WITH WALKER GB, AND TREATMENT APPLIED TO ALL PSORIASIS. RESTING QUIETLY IN BED NOW, WILL CONT TO MONITOR.
[2021-10-18 07:40] VITALS: BP 110/50
[2021-10-18 08:30] VITALS: BP 110/56
[2021-10-18] MEDS ORDERED: HYDROCORTISONE120 M4 TOP (12:58)
[2021-10-18] MEDS ORDERED: PEPCID20 MG PO (12:58)
[2021-10-18] MEDS ORDERED: MIRALAX17 GM PO (12:58)
[2021-10-18] MEDS ORDERED: CLOTRIMAZOLE-BE15 GM TOP (12:58)
[2021-10-18] MEDS ORDERED: FLOMAX0.4 MG PO (12:58)
[2021-10-18] MEDS ORDERED: Cephalexin 500 MG Ca PO (12:58)
--- NOTE | 2021-10-18 13:54 | NUR ---
RE-ASSUMED CARE OF PT AT 0700 THIS MORNING. PT HAD NO CHANGES SINCE REPORT GIVEN LAST NIGHT. PT STILL COMPLAINING OF CONSTIPATION AND HAD HARD STOOLS WITH EACH BM. ASSESSMENTS NOTED IN CHART AND OTHERWISE UNREMARKABLE. FALL PRECAUTIONS ARE IN PLACE. PT IS BEING DISCHARGED TO [facility] LATER IN THE AFTERNOON. TRANSPORT IS SUPPOSED TO BE HERE BETWEEN 1400 AND 1430. PT HAS HAD SUPPOSITORY AND SEEMS TO HAVE SOFTER STOOLS. MEDS AND TX GIVEN NEEDED AND SCHEDULED. WILL MONITOR AND NOTE ANY CHANGES.
--- NOTE | 2021-10-18 13:55 | NUR ---
Pt dcing to SNF at [facility] BS today. They have arranged for a w/c van at 2-2:30pm pickup. All parties updated. Left message for dtr Rach. Chart copy to be sent with the pt. Updated covid test, 124c and orders faxed to [facility] in admissions. Nursing to call report. Pt to be skilled.
--- NOTE | 2021-10-18 14:58 | NUR ---
RE-ASSUMED CARE OF PT AT 0700 THIS MORNING. PT HAD NO CHANGES SINCE LAST NIGHT'S REPORT. ASSESSMENTS NOTED IN CHART AND OTHERWISE UNREMARKABLE. FALL PRECAUTIONS ARE IN PLACE. CALL LIGHT AND OTHER NEEDS ARE IN REACH. PT WAS GIVEN A SUPP DUE TO HARD STOOLS. PT IS BEING DISCHARGED THIS AFTERNOON. PT WAS PICKED UP BY [facility] AT 1430 AND ENROUTE TO FACILITY. MEDS AND TX GIVEN NEEDED AND SCHEDULED. REPORT CALLED IN TO FACILITY.
--- NOTE | 2021-10-21 15:45 | HC ---
[facility] [place] [address] CONSULTATION Name: WOLFGANG BLAIR Room #: 441-P [facility] IN M.R.#: [id number] Admission: 10/08/21 Attend Phys: Poncho Valenzuela MD Discharge: 10/18/21 Date of : 42 Report #: [id number] THIS REPORT FOR: cc: Jacky Patel,Yuridia Ace MD ~ DATE OF SERVICE: 10/09/2021 REASON FOR CONSULTATION: Left proximal fibula fracture. HISTORY OF PRESENT ILLNESS: The patient is an 81-year-old female who lives by herself, uses some type of a thinner wheelchair/transport chair to get around her apartment. She reports her standard wheelchair will not get into her bathroom. She had a fall 2 weeks ago in her bedroom and then a second fall yesterday while she was transferring to the toilet. She was diagnosed with a left proximal fibula fracture. Reports some knee pain, but denies other significant extremity complaints. PAST MEDICAL HISTORY: Significant for debility, significant eczema, hypertension, diabetes, hypothyroidism, asthma. ALLERGIES: AMOXICILLIN. MEDICATIONS: Lovastatin, lisinopril, metformin, albuterol, glipizide, furosemide, levothyroxine, Ozempic, cyanocobalamin, cholecalciferol, Wendy's Wort. PAST SURGICAL HISTORY: Cataract surgery, left femur fracture. SOCIAL HISTORY: Lives alone, does not ambulate, but does transfer. Smoking and alcohol history are unknown. LABORATORY DATA: Laboratory studies done on the date of admission show white blood cell count 13.2, hemoglobin 10.6, hematocrit 32.4, platelet count 542. Chemistry shows an elevated glucose at 162. Vitamin D level was low at 29.8. PHYSICAL EXAMINATION: GENERAL: The patient is awake, alert and oriented. She interacts appropriately. She is a well-developed, well-nourished female in no acute distress. She is lying in the hospital bed. VITAL SIGNS: Most recent vital signs show a temperature of 37, heart rate 95, respiratory rate 20, blood pressure 106/47, pulse oximetry 91% on room air. EXTREMITIES: Examination of her bilateral upper extremities, the skin is clean, dry and intact. She does have signs of eczema. Grossly normal motor and sensory exam. She moves her bilateral upper extremities without pain and no tenderness to palpation. Bilateral lower extremity exam grossly normal motor and sensory. [address] [address] CONSULTATION Name: WOLFGANG BLAIR Room #: 441-P [facility]#: [id number] Admission: 10/08/21 Attend Phys: Poncho Valenzuela MD Discharge: 10/18/21 Date of : 42 Report #: [id number] Skin is clean, dry and intact with again signs of significant eczema. There is tenderness to palpation to the left proximal fibula. No other specific tenderness to palpation. No pain with range of motion of her joints. IMAGING DATA: AP, lateral and oblique of the left knee shows an essentially nondisplaced proximal fibula fracture. IMPRESSION AND PLAN: Left nondisplaced proximal fibula fracture that may be subacute. The patient does not ambulate. I would recommend a hinged knee brace to be worn as needed and follow up with one of my ____ [facility] in approximately 2 weeks. Questions were encouraged and answered to the best of my ability. Please call me if I can be of any further assistance. <ELECTRONICALLY SIGNED> By: Yuridia Singh MD 10/21/21 1545 [id number] [id number] Yuridia Singh MD /nt
== END 2021-10-18 14:40 | DRG 602 ==
LOC: ER 23:31 → 4S 10-08 02:31 → EROBS 10-08 02:31 → 4S 10-08 21:16
PROVIDERS: Nurse Practitioner Family; Student in an Organized Health Care Education/Training Program; ADMIT Internal Medicine; ATTEND Internal Medicine
DX: L03.116 Cellulitis of left lower limb (principal); R65.11 Systemic inflammatory response syndrome (SIRS) of non-infectious origin with acute organ dysfunction; S82.832A Other fracture of upper and lower end of left fibula, initial encounter for closed fracture; L03.115 Cellulitis of right lower limb; L30.9 Dermatitis, unspecified; E11.9 Type 2 diabetes mellitus without complications; J45.909 Unspecified asthma, uncomplicated; D64.9 Anemia, unspecified; I10 Essential (primary) hypertension; E78.5 Hyperlipidemia, unspecified; M81.0 Age-related osteoporosis without current pathological fracture; M19.90 Unspecified osteoarthritis, unspecified site; E03.9 Hypothyroidism, unspecified; R62.7 Adult failure to thrive; T14.8XXA Other injury of unspecified body region, initial encounter; W57.XXXA Bitten or stung by nonvenomous insect and other nonvenomous arthropods, initial encounter; G40.909 Epilepsy, unspecified, not intractable, without status epilepticus; W18.39XA Other fall on same level, initial encounter; R53.81 Other malaise; E55.9 Vitamin D deficiency, unspecified; Z20.822 Contact with and (suspected) exposure to COVID-19; R63.4 Abnormal weight loss; F41.9 Anxiety disorder, unspecified; F41.1 Generalized anxiety disorder; Z98.42 Cataract extraction status, left eye; Z98.41 Cataract extraction status, right eye; Z88.1 Allergy status to other antibiotic agents; Z68.20 Body mass index [BMI] 20.0-20.9, adult; Y93.89 Activity, other specified; Y99.8 Other external cause status; Z99.3 Dependence on wheelchair; Z83.3 Family history of diabetes mellitus; Z81.8 Family history of other mental and behavioral disorders; Z28.21 Immunization not carried out because of patient refusal; Y92.098 Other place in other non-institutional residence as the place of occurrence of the external cause
CPT/HCPCS: 10100; 10195

== ENCOUNTER 2021-11-09 16:03 | Inpatient (IN) | payer OTHER, MEDICARE ==
[~2021-11-09] VITALS: Ht 152.4 cm; Wt 59.0 kg
--- NOTE | ~2021-11-09 | EMS ---
[address] [address] EMS Patient Care Report Name: WOLFGANG HERNANDEZ Room #: 436-P [facility] IN M.R.#: [id number] Admission: 11/09/21 Attend Phys: Poncho Valenzuela MD Discharge: 11/12/21 Date of : 42 Report #: [id number] THIS REPORT FOR: //name// Report Transmitted: 11/13/2021 12:48 EMS Care Summary [facility] [place] Incident [id number] @ 11/09/2021 15:04 Incident Location [address] [id number] Patient wolfgang hernandez Female, 81 Years 1940 Patient Address [address] [place] [address] Patient History Pressure Ulcer,Endocrine Condition - Other,Unspecified asthma, Patient Allergies , Patient Medications , Cyanocobalamin Co57, [place] 35, ProAir, Metformin, Lovastatin, Lisinopril, Chief Complaint Hip/pelvic pain Disposition Transported No Lights/[place] Dispatch Reason Sick Person Transported To [facility] Narrative we were called by the [facility] for a pt that had her x rays done today and it was discoverer that she had a fractured hip and need to be taken to the er. report was given to us by the staff of the [facility]. we then were able to move her by getting her to stand with our help and had her sit on the stretcher where we [address] [address] EMS Patient Care Report Name: WOLFGANG HERNANDEZ Room #: 436-P [facility] IN ..#: [id number] Admission: 11/09/21 Attend Phys: Poncho Valenzuela MD Discharge: 11/12/21 Date of : 42 Report #: [id number] strapped her to the stretcher with all the seat belts and loaded her in the unit without any problems. once in the unit we took her vitals and took her to the hospital of her choice. once we were on the way i called the hospital and gave them my report. we transported her in a comfortable position. when he got to the ER we unloaded her without any problems and brought her to a room where we had her transferred over by a slide sheet. i gave report to the devulcanizer charger and care was turned over without any problems. the end. Initial Vitals @15:40Pain: 07/15, @15:57Pain: 03/15, @15:33P: 89,R: 16,BP: 120/83, @15:58P: 86,R: 17,BP: 132/74, @15:33GCS: 15, @15:58GCS: 15, Assessments @15:14MENTAL:SKIN:HEENT:LUNG SOUNDS:ABDOMEN:PELVIS//GI:EXTREMITIES:PULSE:NEURO: Impression Pelvic and Perineal Pain Timeline 12:00,Call Received 14:57,Dispatch Notified 14:57,Psap Call 15:04,Dispatched 15:05,En Route 15:11,On Scene 15:14,At Patient 15:31,Depart Scene 15:33,BP: 120/83 M,PULSE: 89,RR: 16 R,SPO2: Ox,ETCO2: ,BG: ,PAIN: ,GCS: , 15:33,BP: / M,PULSE: ,RR: R,SPO2: Ox,ETCO2: ,BG: ,PAIN: ,GCS: 15, 15:40,BP: / M,PULSE: ,RR: R,SPO2: Ox,ETCO2: ,BG: ,PAIN: 10,GCS: , 15:57,BP: / M,PULSE: ,RR: R,SPO2: Ox,ETCO2: ,BG: ,PAIN: 6,GCS: , 15:58,BP: 132/74 M,PULSE: 86,RR: 17 R,SPO2: Ox,ETCO2: ,BG: ,PAIN: ,GCS: , 15:58,BP: / M,PULSE: ,RR: R,SPO2: Ox,ETCO2: ,BG: ,PAIN: ,GCS: 15, 16:00,At Destination 16:12,Call Closed Disclaimer v1.1 Copyright 2021 [employer] This EMS Care Summary contains data elements from the applicable legal record (which may be displayed differently). It is designed to provide pertinent [address] [address] EMS Patient Care Report Name: WOLFGANG HERNANDEZ Room #: 436-P DIS IN M.R.#: [id number] Admission: 11/09/21 Attend Phys: Poncho Valenzuela MD Discharge: 11/12/21 Date of : 42 Report #: [id number] information for the following purposes: continuity of care, clinical quality, and state data reporting. The complete legal record is available to ED staff and administrators of the receiving hospital in [facility]'s Patient Tracker. All data is provided "as is."
[~2021-11-09 16:03] MED LIST changes: +CLOTRIMAZOLE-BE15 GM TOP; +Cephalexin 500 MG Ca PO; +FLOMAX0.4 MG PO; +HYDROCORTISONE120 M4 TOP; +PEPCID20 MG PO
[2021-11-09 16:04] VITALS: BP 123/48
[2021-11-09 17:30] LABS: HEMATOCRIT 31.5 % (37.0-47.0); HEMOGLOBIN 10.1 gm/dL (12.0-15.0); MCH 26.5 pg (26.0-34.0); MCHC 32.1 g/dL (28.0-37.0); MCV 82.4 fL (80.0-100.0); RBC 3.82 mil/uL (4.20-5.00); RDW 15.7 % (10.5-14.5); WBC 11.4 thou/uL (4.0-11.0)
[2021-11-09 17:43] LABS: URINE BILIRUBIN NEGATIVE (Negative); URINE BLOOD TRACE (Negative); URINE CLARITY CLEAR; URINE COLOR YELLOW; URINE GLUCOSE-RANDOM* NEGATIVE (Negative); URINE KETONES NEGATIVE (Negative); URINE LEUKOCYTES-REFLEX NEGATIVE (Negative); URINE NITRITE-REFLEX NEGATIVE (Negative); URINE PROTEIN (DIPSTICK) NEGATIVE (Negative); URINE UROBILINOGEN 0.2 E.U./dl (0.2-1.0)
[2021-11-09 18:01] LABS: APTT 24.9 Seconds (24.5-32.8); PROTIME 10.3 Seconds (9.3-11.4)
[2021-11-09 19:41] LABS: CREATININE 0.6 mg/dL (0.6-1.0); POTASSIUM 4.3 mmol/L (3.5-5.1)
[2021-11-09 19:47] LABS: ALBUMIN 2.3 g/dL (3.4-5.0); TOTAL BILIRUBIN 0.2 mg/dL (0.2-1.0); TOTAL PROTEIN 5.7 g/dL (6.4-8.2)
[2021-11-09 22:41] VITALS: BP 103/45
[2021-11-09 23:13] VITALS: BP 105/56
[2021-11-10 06:33] LABS: CALCIUM 9.4 mg/dL (8.5-10.1); CREATININE 0.5 mg/dL (0.6-1.0); POTASSIUM 3.9 mmol/L (3.5-5.1)
[2021-11-10 07:30] VITALS: BP 130/55
[2021-11-10 08:00] VITALS: BP 101/63
[2021-11-10 12:09] VITALS: BP 105/43
[2021-11-10 15:52] VITALS: BP 101/63
[2021-11-10 19:15] VITALS: BP 105/46
[2021-11-11 07:15] VITALS: BP 107/50
[2021-11-11 08:49] VITALS: BP 107/50
[2021-11-11 19:28] VITALS: BP 94/43
[2021-11-12 08:16] VITALS: BP 117/62
[2021-11-12 12:06] VITALS: BP 112/63
[2021-11-12] MEDS ORDERED: CEFUROXIME250 MG PO (13:08)
[2021-11-12] MEDS ORDERED: ELIQUIS5 MG PO (13:08)
== END 2021-11-12 14:20 | DRG 871 ==
LOC: ER 16:03 → EROBS 22:11 → 4S 22:11
PROVIDERS: Nurse Practitioner Family; ADMIT Internal Medicine; ATTEND Internal Medicine
DX: A41.9 Sepsis, unspecified organism (principal); S72.142A Displaced intertrochanteric fracture of left femur, initial encounter for closed fracture; E43 Unspecified severe protein-calorie malnutrition; I26.99 Other pulmonary embolism without acute cor pulmonale; J18.9 Pneumonia, unspecified organism; L03.116 Cellulitis of left lower limb; N39.0 Urinary tract infection, site not specified; I82.4Z2 Acute embolism and thrombosis of unspecified deep veins of left distal lower extremity; E11.9 Type 2 diabetes mellitus without complications; Z20.822 Contact with and (suspected) exposure to COVID-19; Z99.3 Dependence on wheelchair; E78.5 Hyperlipidemia, unspecified; I10 Essential (primary) hypertension; E03.9 Hypothyroidism, unspecified; Z88.8 Allergy status to other drugs, medicaments and biological substances; Z90.49 Acquired absence of other specified parts of digestive tract; D64.9 Anemia, unspecified; M81.0 Age-related osteoporosis without current pathological fracture; Z68.25 Body mass index [BMI] 25.0-25.9, adult; J45.909 Unspecified asthma, uncomplicated; Z87.81 Personal history of (healed) traumatic fracture; W18.39XA Other fall on same level, initial encounter; Y93.89 Activity, other specified; Y92.89 Other specified places as the place of occurrence of the external cause; Y99.8 Other external cause status
CPT/HCPCS: 10100